=== PATIENT | female | born 1970 | race African-American/Black ===

== ENCOUNTER 2016-10-22 17:29 | Emergency (ER) | payer OTHER ==
[~2016-10-22] VITALS: Ht 160 cm; Wt 111.1 kg
[~2016-10-22 17:29] MED LIST: CLIN300C86 PO; FLUC150T PO; METR500T4 PO; NYST15CR TP
[2016-10-22 17:55] VITALS: BP 165/92
[2016-10-22] MEDS ORDERED: HYDR-971 PO (18:44)
[2016-10-22] MEDS ORDERED: ONDA4TAB10 SL (18:44)
--- NOTE | 2016-10-22 18:47 | ED.ADGEN ---
Past Medical History Past Medical History: Arthritis, Asthma, Diabetes-Type II, GERD, High Cholesterol, Hypertension Additional Past Medical Histor: SEASONAL ALLERGIES Past Surgical History: Cholecystectomy, , Knee Replacement, Tonsillectomy Alcohol Use: None Drug Use: None Adult General Chief Complaint Chief Complaint: SORE THROAT HPI HPI Patient is a 46 year old female presents emergency Department with a four-day history of sore throat, nausea, intermittent fevers, and generalized myalgias. She has been taking [id number] cold medications but reports that her throat just hurt too much today. Review of Systems Review of Systems Constitutional: Denies fever or chills. [] Eyes: Denies change in visual acuity. [] HENT: Denies nasal congestion or sore throat. [] Respiratory: Denies cough or shortness of breath. [] Cardiovascular: Denies chest pain or edema. [] GI: Denies abdominal pain, nausea, vomiting, bloody stools or diarrhea. [] : Denies dysuria. [] Musculoskeletal: Denies back pain or joint pain. [] Integument: Denies rash. [] Neurologic: Denies headache, focal weakness or sensory changes. [] Endocrine: Denies polyuria or polydipsia. [] Lymphatic: Denies swollen glands. [] Psychiatric: Denies depression or anxiety. [] Current Medications Current Medications Current Medications Medications (Trade) Dose Ordered Sig/Kimberlyn Start Time Stop Time Status Last Admin Dose Admin Penicillin G Benzathine (Bicillin L-A) 1,200,000 unit 1X ONCE 10/22/16 18:45 10/22/16 18:46 UNV Allergies Allergies Allergies Coded Allergies Type Severity Reaction Last Updated Verified No Known Drug Allergies 07/31/16 No Physical Exam Physical Exam Constitutional: Well developed, well nourished, no acute distress, non-toxic appearance. [] HENT: Normocephalic, atraumatic, bilateral external ears normal, oropharynx moist, bilateral tonsils are erythematous and edematous with exudate, nose normal. [] Eyes: PERRLA, EOMI, conjunctiva normal, no discharge. [] Neck: Normal range of motion, no tenderness, supple, no stridor. [] Cardiovascular:Heart rate regular rhythm, no murmur [] Lungs & Thorax: Bilateral breath sounds clear to auscultation [] Abdomen: Bowel sounds normal, soft, no tenderness, no masses, no pulsatile masses. [] Skin: Warm, dry, no erythema, no rash. [] Back: No tenderness, no CVA tenderness. [] Extremities: No tenderness, no cyanosis, no clubbing, ROM intact, no edema. [] Neurologic: Alert and oriented X 3, normal motor function, normal sensory function, no focal deficits noted. [] Psychologic: Affect normal, judgement normal, mood normal. [] Current Patient Data Vital Signs Vital Signs Date Time Temp Pulse Resp B/P Pulse Ox O2 Delivery O2 Flow Rate FiO2 10/22/16 17:55 100.9 134 16 165/92 99 Room Air 100.9 EKG EKG [] Radiology/Procedures Radiology/Procedures [] Course & Med Decision Making Course & Med Decision Making Pertinent Labs and Imaging studies reviewed. (See chart for details) The patient was treated with Bicillin and given a prescription for [place] and Zofran. She is given supportive care and follow-up instructions. Strep pharyngitis [] Dragon Disclaimer Dragon Disclaimer This electronic medical record was generated, in whole or in part, using a voice recognition dictation system. AMAIRANI SWEENEY MD Oct 22, 2016 18:47
[2016-10-22 18:55] LABS: OBC FLU VALID
[2016-10-22] MEDS ORDERED: PENICILLIN G BENZATHINE LA 1,200,000 UNIT/2 ML DISP.SYRIN. IM ONE (19:00)
[2016-10-23 08:20] LABS: NEGATIVE OBC STREP NEG; POSITIVE OBC STREP POS
== END 2016-10-22 19:26 | disposition home or self-care (01) ==
LOC: ER 17:29
DX: J02.0 Streptococcal pharyngitis (principal); J45.909 Unspecified asthma, uncomplicated; E11.9 Type 2 diabetes mellitus without complications; E78.00 Pure hypercholesterolemia, unspecified; I10 Essential (primary) hypertension; Z90.89 Acquired absence of other organs
CPT/HCPCS: 87804; 87880; 96372; 99284; J0561

== ENCOUNTER 2017-02-23 14:00 | Emergency (ER) | payer OTHER ==
[~2017-02-23] VITALS: Ht 160 cm; Wt 111.1 kg
[~2017-02-23 14:00] MED LIST changes: +CLIN300C8 PO; -CLIN300C86 PO; +HYDR-971 PO; -METR500T4 PO; +METR500T8 PO; +ONDA4TAB10 SL
[2017-02-23 14:15] VITALS: BP 152/73
--- NOTE | 2017-02-23 15:00 | PHYS DOC ---
Past Medical History Past Medical History: Arthritis, Asthma, Diabetes-Type II, GERD, High Cholesterol, Hypertension Additional Past Medical Histor: SEASONAL ALLERGIES Past Surgical History: Cholecystectomy, , Knee Replacement, Tonsillectomy Alcohol Use: None Drug Use: None Adult General Chief Complaint Chief Complaint: SKIN RASH/ABSCESS HPI HPI Patient is a 46 year old female who presents with a pruritic rash that began 2 months ago. Patient states she has tried hydrocortisone cream with no relief, she states she has been seen by the PCP and was given triamcinolone cream with no relief. Patient denies any known triggers for this rash. Review of Systems Review of Systems Constitutional: Denies fever or chills [] Eyes: Denies change in visual acuity, redness, or eye pain [] Musculoskeletal: Denies back pain or joint pain [] Integument: rash Neurologic: Denies headache, focal weakness or sensory changes [] Endocrine: Denies polyuria or polydipsia [] Allergies Allergies Allergies Coded Allergies Type Severity Reaction Last Updated Verified No Known Drug Allergies 07/31/16 No Physical Exam Physical Exam Constitutional: Well developed, well nourished, no acute distress, non-toxic appearance. [] HENT: Normocephalic, atraumatic, bilateral external ears normal, oropharynx moist, no oral exudates, nose normal. [] Skin: Small amount of non-erythematous papular rash on bilateral upper extremities. Back: No tenderness, no CVA tenderness. [] Extremities: No tenderness, no cyanosis, no clubbing, ROM intact, no edema. [] Neurologic: Alert and oriented X 3, normal motor function, normal sensory function, no focal deficits noted. [] Psychologic: Affect normal, judgement normal, mood normal. [] Current Patient Data Vital Signs Vital Signs Date Time Temp Pulse Resp B/P (MAP) Pulse Ox O2 Delivery O2 Flow Rate FiO2 02/23/17 14:15 97.8 102 16 100 Room Air 97.8 EKG EKG [] Radiology/Procedures Radiology/Procedures [] Course & Med Decision Making Course & Med Decision Making Pertinent Labs and Imaging studies reviewed. (See chart for details) Patient has contact dermatitis rash from unknown cause. Discharged with Atarax. She already has triamcinolone cream. Follow-up with primary care doctor or burner shaft provided in 2 weeks. Dragon Disclaimer Dragon Disclaimer This electronic medical record was generated, in whole or in part, using a voice recognition dictation system. Departure Departure Impression: Primary Impression: Contact dermatitis Disposition: 01 HOME, SELF-CARE Condition: STABLE Referrals: OMAR LOGAN MD (PCP) VITALIY TRAYLOR MD follow up in 2 weeks Patient Instructions: Contact Dermatitis, [id number] Additional Instructions: You seen for an itchy rash. We recommend you follow-up with the provided burner shaft. Use the medications provided as ordered. Scripts Hydroxyzine Hcl (HYDROXYZINE HCL) 50 Mg Tablet 50 MG PO Q6HRS, #60 TAB Prov: BARB FRANK APRN 02/23/17 Problem Qualifiers Primary Impression: Contact dermatitis Contact dermatitis type: unspecified Contact dermatitis trigger: unspecified trigger Qualified Codes: L25.9 - Unspecified contact dermatitis, unspecified cause BARB FRANK APRN Feb 23, 2017 15:00
[2017-02-23] MEDS ORDERED: HYDR50TA PO (15:03)
== END 2017-02-23 15:08 | disposition home or self-care (01) ==
LOC: ER 14:00
DX: L25.9 Unspecified contact dermatitis, unspecified cause (principal); M19.90 Unspecified osteoarthritis, unspecified site; J45.909 Unspecified asthma, uncomplicated; E11.9 Type 2 diabetes mellitus without complications; K21.9 Gastro-esophageal reflux disease without esophagitis; E78.00 Pure hypercholesterolemia, unspecified; I10 Essential (primary) hypertension; Z90.49 Acquired absence of other specified parts of digestive tract; Z96.659 Presence of unspecified artificial knee joint
CPT/HCPCS: 99283

== ENCOUNTER → 2017-07-13 | Outpatient (CLI) | payer OTHER ==
[~2017-07-13] MED LIST changes: +BENZ100C PO; +DICY20TA3 PO; +HYDR50TA PO; +PRED50TA PO; +PROAIR RESPICL90 MCG IH
--- NOTE | 2017-07-13 11:01 | RAD ---
DATE: 07/13/2017 EXAM: DIGITAL SCREEN BILAT W/CAD HISTORY: Routine screening. History of benign right breast biopsy. COMPARISON: Previous mammogram from 2015 and 2014 This study was interpreted with the benefit of Computerized Aided Detection (CAD). FINDINGS: Breast Density: FATTY The Breast Parenchyma is primarily fatty replaced. Breast parenchyma level density A.. The skin and nipples are within normal limits. Stable upper outer anterior right breast biopsy clip. No suspicious calcifications, spiculated masses or areas of architectural distortion. IMPRESSION: No mammographic evidence of malignancy. Stable mammogram. BI-RADS CATEGORY: 2 BENIGN FINDING(S) RECOMMENDED FOLLOW-UP: 12M 12 MONTH FOLLOW-UP PQRS compliance statement: Patient information was entered into a reminder system with a target due date 07/13/2018 for the next mammogram. Mammography is a sensitive method for finding small breast cancers, but it does not detect them all and is not a substitute for careful clinical examination. A negative mammogram does not negate a clinically suspicious finding and should not result in delay in biopsying a clinically suspicious abnormality. "Our facility is accredited by the [employer] Mammography Program."
== END | disposition home or self-care (01) ==
LOC: MAMMO 09:24
PROVIDERS: ATTEND Family Medicine
DX: Z12.31 Encounter for screening mammogram for malignant neoplasm of breast (principal)
CPT/HCPCS: G0202; 77067

== ENCOUNTER 2017-07-17 23:44 | Emergency (ER) | payer OTHER ==
[~2017-07-17 23:44] MED LIST changes: -BENZ100C PO; -DICY20TA3 PO; -PRED50TA PO; -PROAIR RESPICL90 MCG IH
[2017-07-17 23:57] VITALS: BP 142/82
--- NOTE | 2017-07-18 00:14 | PHYS DOC ---
Past Medical History Past Medical History: Asthma, Hypertension Additional Past Medical Histor: SEASONAL ALLERGIES Past Surgical History: Cholecystectomy, , Knee Replacement, Tonsillectomy Alcohol Use: None Drug Use: None Adult General Chief Complaint Chief Complaint: SORE THROAT HPI HPI Patient is a 47 year old female with history of hypertension who presents today with a sore throat nasal congestion and a cough that began 3 days ago. Patient denies any fever. Patient's also complaining of diarrhea for 3 days. Denies any nausea vomiting but states her "stomach feels hot". Review of Systems Review of Systems Constitutional: Denies fever or chills [] Eyes: Denies change in visual acuity, redness, or eye pain [] HENT: Nasal congestion and sore throat Respiratory: Reports cough denies shortness of breath [] Cardiovascular: No additional information not addressed in HPI [] GI: Reports stomach feels hot, denies nausea, reports diarrhea, denies vomiting. : Denies dysuria or hematuria [] Musculoskeletal: Denies back pain or joint pain [] Integument: Denies rash or skin lesions [] Neurologic: Denies headache, focal weakness or sensory changes [] All other systems were reviewed and found to be within normal limits, except as documented in this note. Allergies Allergies Allergies Coded Allergies Type Severity Reaction Last Updated Verified No Known Drug Allergies 07/31/16 No Physical Exam Physical Exam Constitutional: Well developed, well nourished, no acute distress, non-toxic appearance. [] HENT: Normocephalic, atraumatic, bilateral external ears normal, oropharynx moist, no oral exudates, nose normal. [] Eyes: PERRLA, EOMI, conjunctiva normal, no discharge. [] Neck: Normal range of motion, no tenderness, supple, no stridor. [] Cardiovascular:Heart rate regular rhythm, no murmur [] Lungs & Thorax: Bilateral breath sounds clear to auscultation [] Abdomen: Bowel sounds normal, soft, no tenderness, no masses, no pulsatile masses. [] Skin: Warm, dry, no erythema, no rash. [] Back: No tenderness, no CVA tenderness. [] Extremities: No tenderness, no cyanosis, no clubbing, ROM intact, no edema. [] Neurologic: Alert and oriented X 3, normal motor function, normal sensory function, no focal deficits noted. [] Psychologic: Affect normal, judgement normal, mood normal. [] Current Patient Data Vital Signs Vital Signs Date Time Temp Pulse Resp B/P (MAP) Pulse Ox O2 Delivery O2 Flow Rate FiO2 07/17/17 23:57 98.0 103 18 98 Room Air 98.0 EKG EKG [] Radiology/Procedures Radiology/Procedures [] Course & Med Decision Making Course & Med Decision Making Pertinent Labs and Imaging studies reviewed. (See chart for details) Patient is in the ED with multiple complaints including cough nasal congestion and sore throat. She is also complaining of diarrhea. Informed patient her diarrhea is viral and will run its own course. Her cough is probably part of an upper respiratory infection viral illness. She has history of asthma and is currently using her inhaler. Encouraged her to continue using it. Discharged with Tessalon Perles and prednisone for 5 days. Encouraged to use saltwater gargles and Tylenol Motrin for pain or fever. Strep test is negative in the ED. Dragon Disclaimer Dragon Disclaimer This electronic medical record was generated, in whole or in part, using a voice recognition dictation system. Departure Departure Impression: Primary Impression: Viral pharyngitis Additional Impressions: Upper respiratory infection Cough Diarrhea Disposition: HOME, SELF-CARE Condition: STABLE Referrals: OMAR LOGAN MD (PCP) Follow-up with your doctor in one week Patient Instructions: Cough, Adult, Ladf-[id number], Diarrhea, Upper Respiratory Infection, Adult, [id number], Viral Pharyngitis Additional Instructions: You were seen with multiple symptoms consistent of viral illness including diarrhea cough and nasal congestion and sore throat. Most of these symptoms will run in their own course. Your strep test in the emergency room was negative. We encourage you to push fluids, maintain good hand hygiene, continue using albuterol inhaler at home. Take the other prescribed medications as ordered. Follow-up with the primary care doctor in 1-2 weeks. Scripts Dicyclomine Hcl (DICYCLOMINE HCL) 20 Mg Tablet 1 TAB PO TID, #30 TAB 1 Refill for abdominal pain Prov: MUTUNGA,BARB MAINTENANCE SPECIALIST 07/18/17 Prednisone (PREDNISONE) 50 Mg Tablet 1 TAB PO DAILY, #5 TAB Prov: MUTUNGA,BARB MAINTENANCE SPECIALIST 07/18/17 Benzonatate (TESSALON PERLE) 100 Mg Capsule 1 CAP PO TID, #30 CAP Prov: BARB FRANK APRN 07/18/17 Albuterol Sulfate (Proair Respiclick) 90 Mcg Aer.pow.ba 1 PUFF IH PRN Q6HRS Y for SHORTNESS OF BREATH, #1 INHALER Prov: BARB FRANK APRN 07/18/17 Problem Qualifiers Additional Impressions: Upper respiratory infection URI type: unspecified URI Qualified Codes: J06.9 - Acute upper respiratory infection, unspecified Diarrhea Diarrhea type: unspecified type Qualified Codes: R19.7 - Diarrhea, unspecified BARB FRANK APRN Jul 18, 2017 00:14
[2017-07-18] MEDS ORDERED: BENZ100C PO (00:28)
[2017-07-18] MEDS ORDERED: PROAIR RESPICL90 MCG IH (00:28)
[2017-07-18] MEDS ORDERED: PRED50TA PO (00:28)
[2017-07-18] MEDS ORDERED: DICY20TA3 PO (00:28)
[2017-07-18 06:41] LABS: NEGATIVE OBC STREP NEG; POSITIVE OBC STREP POS
== END 2017-07-18 00:37 | disposition home or self-care (01) ==
LOC: ER 23:44
DX: J02.8 Acute pharyngitis due to other specified organisms (principal); B97.89 Other viral agents as the cause of diseases classified elsewhere; R19.7 Diarrhea, unspecified; I10 Essential (primary) hypertension; J45.909 Unspecified asthma, uncomplicated
CPT/HCPCS: 87070; 87880; 99284

== ENCOUNTER → 2017-09-28 | Outpatient (CLI) | payer BC, OTHER | END | disposition home or self-care (01) | LOC: KCIC MRI 13:03 | DX: S43.432A Superior glenoid labrum lesion of left shoulder, initial encounter (principal); M19.012 Primary osteoarthritis, left shoulder; X58.XXXA Exposure to other specified factors, initial encounter; Y93.89 Activity, other specified; Y92.89 Other specified places as the place of occurrence of the external cause; Y99.8 Other external cause status | CPT/HCPCS: 73221 ==

== ENCOUNTER → 2017-10-29 | Outpatient (CLI) | payer BC ==
[2017-10-29 10:33] LABS: GFR 71.9
[2017-10-29] MEDS: IOHEXOL 240 MG/ML 50ML VIAL. PO (12:09)
[2017-10-29] MEDS: IOHEXOL 300 MG/ML 100ML VIAL. IV (12:09)
== END | disposition home or self-care (01) ==
LOC: CT 10:10
DX: K76.0 Fatty (change of) liver, not elsewhere classified (principal); N28.89 Other specified disorders of kidney and ureter; K42.9 Umbilical hernia without obstruction or gangrene; I10 Essential (primary) hypertension; E11.9 Type 2 diabetes mellitus without complications; J45.909 Unspecified asthma, uncomplicated; R16.0 Hepatomegaly, not elsewhere classified
CPT/HCPCS: 36415; 74177; 82565; Q9966; Q9967

== ENCOUNTER → 2017-12-11 | Day surgery (SDC) | payer BC ==
[~2017-12-11] MED LIST changes: -CLIN300C8 PO; -FLUC150T PO; -HYDR-971 PO; -HYDR50TA PO; +LIDOCAINE 1% PF 2 ML VIAL. ID; +LIDOCAINE 2% PF Vial for OR 5 ML VIAL.; -METR500T8 PO; +MIDAZOLAM HCL/PF 2 MG/2 ML VIAL. IV; -NYST15CR TP; -ONDA4TAB10 SL; +PROPOFOL 40 ML IV; +fentaNYL PF VIAL 100 MCG/2 ML VIAL IV
[2017-12-11] MEDS: IV RINGERS,LACTATED 1000ML 1,000 ML IV (12:03)
[2017-12-11 16:18] LABS: NEG OBC UR NEG; POS OBC UR POS; U PREG PATIENT NEGATIVE (NEG)
== END | disposition home or self-care (01) ==
LOC: ENDOS 13:05
DX: K25.9 Gastric ulcer, unspecified as acute or chronic, without hemorrhage or perforation (principal); K21.9 Gastro-esophageal reflux disease without esophagitis; I10 Essential (primary) hypertension; E66.9 Obesity, unspecified; J45.909 Unspecified asthma, uncomplicated; E78.00 Pure hypercholesterolemia, unspecified; Z86.32 Personal history of gestational diabetes; Z90.49 Acquired absence of other specified parts of digestive tract; Z98.890 Other specified postprocedural states; Z82.49 Family history of ischemic heart disease and other diseases of the circulatory system; Z83.3 Family history of diabetes mellitus; Z91.013 Allergy to seafood; Z88.8 Allergy status to other drugs, medicaments and biological substances; Z79.899 Other long term (current) drug therapy
CPT/HCPCS: 43239; 81025; 88305; 88342; J2704

== ENCOUNTER 2018-04-03 18:55 | Inpatient (IN) | payer BC ==
[~2018-04-03] VITALS: Ht 160 cm; Wt 124.3 kg
[~2018-04-03 18:55] MED LIST changes: +BENZ100C PO; +CELE200C PO; +CLIN300C8 PO; +DAPA1TAB3 PO; +DICY20TA3 PO; +FLUC150T PO; +HYDR-971 PO; +HYDR50TA PO; -LIDOCAINE 1% PF 2 ML VIAL. ID; -LIDOCAINE 2% PF Vial for OR 5 ML VIAL.; +LISI1TAB3 PO; +LORA10TA68 PO; +LOVA20TA2 PO; +METR500T8 PO; -MIDAZOLAM HCL/PF 2 MG/2 ML VIAL. IV; +NYST15CR TP; +ONDA4TAB10 SL; +PRED50TA PO; +PROAIR RESPICL90 MCG IH; -PROPOFOL 40 ML IV; +RANI150T21 PO; +TRAM50TA PO; -fentaNYL PF VIAL 100 MCG/2 ML VIAL IV
[2018-04-03 19:28] LABS: U PREG PATIENT NEGATIVE (NEG)
[2018-04-03] MEDS ORDERED: amLODIPine BESYLATE 5 MG TABLET PO ONE (19:45)
[2018-04-03] MEDS ORDERED: ACETAMINOPHEN 500 MG TABLET PO ONE (19:45)
[2018-04-03] MEDS ORDERED: IV NORMAL SALINE 1000ML BAG 1,000 ML IV ONE (19:45)
[2018-04-03 19:53] LABS: BASO % 1 % (0-3); EOS # 0.1 x10^3/uL (0.0-0.7); EOS % 1 % (0-3); HEMATOCRIT 33.2 % (36.0-47.0); HEMOGLOBIN 11.1 g/dL (12.0-15.5); LYMPH # 0.9 x10^3/uL (1.0-4.8); LYMPH % 15 % (24-48); MEAN CORPUSCULAR HEMOGLOBIN 26 pg (25-35); MEAN CORPUSCULAR HGB CONC 34 g/dL (31-37); MEAN CORPUSCULAR VOLUME 79 fL (79-100); MONO # 0.7 x10^3/uL (0.0-1.1); MONO % 11 % (0-9); NEUT # 4.6 x10^3uL (1.8-7.7); NEUT % 73 % (31-73); PLATELET COUNT 191 x10^3/uL (140-400); RED CELL DISTRIBUTION WIDTH 15.5 % (11.5-14.5); WHITE BLOOD COUNT 6.3 x10^3/uL (4.0-11.0)
--- NOTE | 2018-04-03 20:01 | RAD ---
PROCEDURE: PORTABLE CHEST 1V CLINICAL INDICATION: ER PATIENT. FEVER X2 DAYS. HX HTN. ASTHMA, DIABETES.. COMPARISON: None FINDINGS: No pneumothorax identified. Cardiac and mediastinal contours unremarkable. No pulmonary consolidation or acute airspace disease. No acute osseous abnormalities identified. IMPRESSION: No pulmonary consolidation or acute airspace disease. Electronically signed by: Yeyo Harper DO (04/03/2018 7:58 PM) [facility]
[2018-04-03 20:14] LABS: ALBUMIN 3.2 g/dL (3.4-5.0); ALBUMIN/GLOBULIN RATIO 0.9 (1.0-1.7); CALCIUM 8.9 mg/dL (8.5-10.1); CREATININE 1.2 mg/dL (0.6-1.0); GFR 58.3; TOTAL BILIRUBIN 0.6 mg/dL (0.2-1.0); TOTAL PROTEIN 6.8 g/dL (6.4-8.2)
[2018-04-03 20:15] LABS: POTASSIUM 2.7 mmol/L (3.5-5.1)
[2018-04-03] MEDS ORDERED: POTASSIUM CHLORIDE 20 MEQ/15 ML ORAL LIQUID. PO ONE (20:15)
[2018-04-03] MEDS ORDERED: ONDANSETRON PF 4 MG/2 ML VIAL. IV ONE (20:15)
--- NOTE | 2018-04-03 20:19 | PHYS DOC ---
Past Medical History Past Medical History: Asthma, Diabetes-Type II, GERD, Hypertension Additional Past Medical Histor: SEASONAL ALLERGIES Past Surgical History: Cholecystectomy, , Knee Replacement, Tonsillectomy Alcohol Use: None Drug Use: None Adult General Chief Complaint Chief Complaint: ABDOMINAL PAIN HPI HPI Patient is a 47 year old female who is presenting with chief been multiple complaints. She says she has had body aches feeling chills sore throat sinus congestion and mild cough also had a lot of diarrhea yesterday she had some abdominal cramping with that diarrhea the abdominal discomfort has currently gone away she denies any urinary symptoms no chest pain no shortness of breath she just feels weak and has having body aches and joint aches. There are no sick contacts no recent travel out of this area. She does have a history of diabetes as well. Review of Systems Review of Systems Constitutional: Eyes: Denies change in visual acuity, redness, or eye pain [] HENT: Respiratory: Denies cough or shortness of breath [] Cardiovascular: No additional information not addressed in HPI [] Musculoskeletal: Integument: Denies rash or skin lesions [] Neurologic: Denies headache, focal weakness or sensory changes [] Endocrine: Denies polyuria or polydipsia [] All other systems were reviewed and found to be within normal limits, except as documented in this note. Current Medications Current Medications Current Medications Medications (Trade) Dose Ordered Sig/Kimberlyn Start Time Stop Time Status Last Admin Dose Admin Acetaminophen (Tylenol) 1,000 mg 1X ONCE 04/03/18 19:45 04/03/18 19:46 DC 04/03/18 19:51 1,000 MG Amlodipine Besylate (Norvasc) 10 mg 1X ONCE 04/03/18 19:45 04/03/18 19:46 DC 04/03/18 19:51 10 MG Clonidine HCl (Catapres) 0.1 mg 1X ONCE 04/03/18 21:00 04/03/18 21:02 DC 04/03/18 21:21 0.1 MG Magnesium Sulfate/ Dextrose 100 ml @ 100 mls/hr 1X ONCE 04/03/18 21:00 04/03/18 21:59 DC 04/03/18 21:22 100 MLS/HR Ondansetron HCl (Zofran) 4 mg 1X ONCE 04/03/18 20:15 04/03/18 20:19 DC 04/03/18 20:30 4 MG Potassium Chloride/Sodium Chloride 1,000 ml @ 125 mls/hr 1X ONCE 04/03/18 21:00 04/04/18 04:59 04/03/18 21:22 125 MLS/HR Potassium Chloride (KCl Oral Soln) 60 meq 1X ONCE 04/03/18 20:15 04/03/18 20:19 DC 04/03/18 20:31 60 MEQ Sodium Chloride 1,000 ml @ 1,000 mls/hr 1X ONCE 04/03/18 19:45 04/03/18 20:44 DC 04/03/18 19:50 1,000 MLS/HR Allergies Allergies Allergies Coded Allergies Type Severity Reaction Last Updated Verified fish derived Allergy Severe ANAPHYLAXIS 12/11/17 Yes Physical Exam Physical Exam Constitutional: Well developed, over nourished, no acute distress, non-toxic appearance. [] HENT: Normocephalic, atraumatic, bilateral external ears normal, oropharynx dry , no oral exudates, nose normal. [] Eyes: PERRLA, EOMI, conjunctiva normal, no discharge. [] Neck: Normal range of motion, no tenderness, supple, no stridor. [] Cardiovascular: Mild tachycardia Lungs & Thorax: Bilateral breath sounds clear to auscultation [] Abdomen: Bowel sounds normal, soft, no tenderness, no masses, no pulsatile masses. [] Skin: Warm, dry, no erythema, no rash. [] Back: No tenderness, no CVA tenderness. [] Extremities: No tenderness, no cyanosis, no clubbing, ROM intact, no edema. [] Neurologic: Alert and oriented X 3, normal motor function, normal sensory function, no focal deficits noted. [] Psychologic: Affect normal, judgement normal, mood normal. [] Current Patient Data Vital Signs Vital Signs Date Time Temp Pulse Resp B/P (MAP) Pulse Ox O2 Delivery O2 Flow Rate FiO2 04/03/18 21:21 103 186/91 04/03/18 19:21 98.8 18 95 Room Air 98.8 Lab Values Laboratory Tests Test 04/03/18 19:15 04/03/18 19:49 Urine Collection Type Unknown Urine Color Yellow Urine Clarity Clear Urine pH 5.5 Urine Specific [place] >=1.030 Urine Protein Negative mg/dL (NEG-TRACE) Urine Glucose (UA) >=1000 mg/dL (NEG) Urine Ketones (Stick) Negative mg/dL (NEG) Urine Blood Negative (NEG) Urine Nitrite Negative (NEG) Urine Bilirubin Negative (NEG) Urine Urobilinogen Dipstick 1.0 mg/dL (0.2 mg/dL) Urine Leukocyte Esterase Negative (NEG) Urine RBC Rare /HPF (0-2) Urine WBC Occ /HPF (0-4) Urine Squamous Epithelial Cells Mod /LPF Urine Bacteria Few /HPF (0-FEW) Urine Test Negative (NEG) White Blood Count 6.3 x10^3/uL (4.0-11.0) Red Blood Count 4.20 x10^6/uL (3.50-5.40) Hemoglobin 11.1 g/dL (12.0-15.5) L Hematocrit 33.2 % (36.0-47.0) L Mean Corpuscular Volume 79 fL (79-100) Mean Corpuscular Hemoglobin 26 pg (25-35) Mean Corpuscular Hemoglobin Concent 34 g/dL (31-37) Red Cell Distribution Width 15.5 % (11.5-14.5) H Platelet Count 191 x10^3/uL (140-400) Neutrophils (%) (Auto) 73 % (31-73) Lymphocytes (%) (Auto) 15 % (24-48) L Monocytes (%) (Auto) 11 % (0-9) H Eosinophils (%) (Auto) 1 % (0-3) Basophils (%) (Auto) 1 % (0-3) Neutrophils # (Auto) 4.6 x10^3uL (1.8-7.7) Lymphocytes # (Auto) 0.9 x10^3/uL (1.0-4.8) L Monocytes # (Auto) 0.7 x10^3/uL (0.0-1.1) Eosinophils # (Auto) 0.1 x10^3/uL (0.0-0.7) Basophils # (Auto) 0.0 x10^3/uL (0.0-0.2) Sodium Level 141 mmol/L (136-145) Potassium Level 2.7 mmol/L (3.5-5.1) *L Chloride Level 104 mmol/L (98-107) Carbon Dioxide Level 31 mmol/L (21-32) Anion Gap 6 (6-14) Blood Urea Nitrogen 9 mg/dL (7-20) Creatinine 1.2 mg/dL (0.6-1.0) H Estimated GFR (Cockcroft-Gault) 58.3 BUN/Creatinine Ratio 8 (6-20) Glucose Level 293 mg/dL (70-99) H Calcium Level 8.9 mg/dL (8.5-10.1) Magnesium Level 1.8 mg/dL (1.8-2.4) Total Bilirubin 0.6 mg/dL (0.2-1.0) Aspartate Amino Transferase (AST) 17 U/L (15-37) Alanine Aminotransferase (ALT) 15 U/L (14-59) Alkaline Phosphatase 79 U/L (46-116) Total Protein 6.8 g/dL (6.4-8.2) Albumin 3.2 g/dL (3.4-5.0) L Albumin/Globulin Ratio 0.9 (1.0-1.7) L Lipase 185 U/L (73-393) Laboratory Tests 04/03/18 19:49 Laboratory Tests 04/03/18 19:49 EKG EKG [] Interpretation Time: EKG shows sinus tach rate 107 QTc 508 magnesium is currently pending ST segment depression laterally probably related to hypokalemia. Radiology/Procedures Radiology/Procedures [] Impressions: PROCEDURE: PORTABLE CHEST 1V CLINICAL INDICATION: ER PATIENT. FEVER X2 DAYS. HX HTN. ASTHMA, DIABETES.. COMPARISON: None FINDINGS: No pneumothorax identified. Cardiac and mediastinal contours unremarkable. No pulmonary consolidation or acute airspace disease. No acute osseous abnormalities identified. IMPRESSION: No pulmonary consolidation or acute airspace disease. Electronically signed by: Yeyo Harper DO (04/03/2018 7:58 PM) [facility] DICTATED and SIGNED BY: YEYO HARPER DO DATE: 04/03/181956 Course & Med Decision Making Course & Med Decision Making Pertinent Labs and Imaging studies reviewed. (See chart for details) []47-year-old female with the above past medical history to include obesity asthma diabetes hypertension did not take medications today who is presenting with diarrhea sore throat and body aches generalized malaise and chills all seemingly consistent with a viral syndrome. Potassium was 2.7, magnesium and ordered an EKG we did give 60 mEq of by mouth potassium. This is likely related to GI losses from diarrhea given her history given qtc of 508, and pt still symptomatic feeling weak and dizzy (also with elevated bp likely due to med noncompliance), i have opted to admit patient for iv fluid k repletion and observation, she is agreealbe, admit to med/tele d/w marshal. Dragon Disclaimer Dragon Disclaimer This electronic medical record was generated, in whole or in part, using a voice recognition dictation system. Departure Departure Impression: Primary Impression: Viral syndrome Additional Impression: Hypokalemia Disposition: ADMITTED INPATIENT Admitting Physician: Xie. Jon Condition: STABLE Referrals: OMAR LOGAN MD (PCP) Problem Qualifiers KANDICE LEZAMA MD Apr 03, 2018 20:19
[2018-04-03 20:44] LABS: BILIRUBIN,URINE NEGATIVE (NEG); CLARITY,URINE CLEAR; COLOR,URINE YELLOW; NITRITE,URINE NEGATIVE (NEG); PH,URINE 5.5; PROTEIN,URINE NEGATIVE (NEG-TRACE)
[2018-04-03 20:51] LABS: BACTERIA,URINE FEW /HPF (0-FEW); RBC,URINE RARE /HPF (0-2); SQUAMOUS EPITHELIAL CELL,UR MOD /LPF; WBC,URINE OCC /HPF (0-4)
[2018-04-03] MEDS ORDERED: cloNIDine HCL 0.1 MG TABLET PO ONE (21:00)
[2018-04-03] MEDS ORDERED: POTASSIUM CL 40MEQ IN 0.9%NACL 1,000 ML IV ONE (21:00)
[2018-04-03] MEDS ORDERED: MAGNESIUM SULFATE 1GM 100 ML IV ONE (21:00)
--- NOTE | 2018-04-03 21:00 | EKG ---
[facility] [address] [place] [address] Test Date: 2018-04-03 Test Time: 20:27:49 Pat Name: MANAV MCDANIEL Department: Room: Gender: F Drier Operator: : 1970 Requested By: KANDICE LEZAMA Order Number: [id number] Reading MD: Aman Christianson MD Measurements Intervals [place] Rate: 107 P: 49 SD: 122 QRS: 42 QRSD: 84 T: 3 QT: 376 QTc: 508 Interpretive Statements SINUS TACHYCARDIA Electronically Signed On 04-04-2018 7:35:04 CDT by Aman Christianson MD
[2018-04-03 23:30] VITALS: BP 144/82
[2018-04-04] MEDS ORDERED: FERR325T14 PO (00:26)
[2018-04-04 02:45] VITALS: BP 143/80
[2018-04-04 05:03] LABS: CALCIUM 7.8 mg/dL (8.5-10.1); CREATININE 0.9 mg/dL (0.6-1.0); GFR 81.2; POTASSIUM 3.4 mmol/L (3.5-5.1)
[2018-04-04 07:00] VITALS: BP 116/68
[2018-04-04 11:00] VITALS: BP 139/89
--- NOTE | 2018-04-04 11:05 | PDOC1 ---
History and Physical Date of Admission Date of Admission DATE: 04/04/18 TIME: 11:05 Identification/Chief Complaint Chief Complaint cc body aches feeling chills sore throat sinus congestion and mild cough also had a lot of diarrhea red some abdominal cramping with that diarrhea the abdominal discomfort has currently gone away potassium was low on admit in ER Past Medical History Past Medical History Past Medical History Past Medical History Past Medical History: Asthma, Diabetes-Type II, GERD, Hypertension Additional Past Medical Histor: SEASONAL ALLERGIES Past Surgical History: Cholecystectomy, , Knee Replacement, Tonsillectomy Alcohol Use: None Drug Use: None FAMILY HX DIABETES, HTN Rheumatologic: No pertinent hx Infectious disease: No pertinent hx Endocrine: Diabetes Family History Family History: Diabetes, Hypertension Social History Smoke: No ALCOHOL: none Drugs: None Current Problem List Problem List Problems Medical Problems: (1) Hypokalemia Status: Acute (2) Viral syndrome Status: Acute Current Medications Current Medications Current Medications Sodium Chloride 1,000 ml @ 1,000 mls/hr 1X ONCE IV Last administered on at 19:50; Start 04/03/18 at 19:45; Stop 04/03/18 at 20:44; Status DC Acetaminophen (Tylenol) 1,000 mg 1X ONCE PO Last administered on 04/03/18at 19: 51; Start 04/03/18 at 19:45; Stop 04/03/18 at 19:46; Status DC Amlodipine Besylate (Norvasc) 10 mg 1X ONCE PO Last administered on 04/03/18at 19:51; Start 04/03/18 at 19:45; Stop 04/03/18 at 19:46; Status DC Potassium Chloride (KCl Oral Soln) 60 meq 1X ONCE PO Last administered on 04/03at 20:31; Start 04/03/18 at 20:15; Stop 04/03/18 at 20:19; Status DC Ondansetron HCl (Zofran) 4 mg 1X ONCE IV Last administered on 04/03/18at 20:30 ; Start 04/03/18 at 20:15; Stop 04/03/18 at 20:19; Status DC Magnesium Sulfate/ Dextrose 100 ml @ 100 mls/hr 1X ONCE IV Last administered on 04/03/18at 21:22; Start 04/03/18 at 21:00; Stop 04/03/18 at 21:59; Status DC Potassium Chloride/Sodium Chloride 1,000 ml @ 125 mls/hr 1X ONCE IV Last administered on 04/03/18at 21:22; Start 04/03/18 at 21:00; Stop 04/04/18 at 04:59 ; Status DC Clonidine HCl (Catapres) 0.1 mg 1X ONCE PO Last administered on 04/03/18at 21: 21; Start 04/03/18 at 21:00; Stop 04/03/18 at 21:02; Status DC Active Scripts Active Proair Respiclick (Albuterol Sulfate) 90 Mcg Aer.pow.ba 1 Puff IH PRN Q6HRS PRN Reported Ferrous Sulfate 325 Mg Tablet 1 Tab PO DAILY Claritin (Loratadine) 10 Mg Tablet 10 Mg PO DAILY Lovastatin 20 Mg Tablet 20 Mg PO HS Lisinopril-Hctz 10-12.5 Mg Tab (Lisinopril/Hydrochlorothiazide) 1 Each Tablet 1 Tab PO DAILY Celebrex (Celecoxib) 200 Mg Capsule 400 Mg PO BID 30 Days Xigduo Xr 5 mg-1,000 mg Tablet (Dapagliflozin/Metformin HCl) 1 Each Tab.bp.24h 1 Each PO DAILY Zantac (Ranitidine Hcl) 150 Mg Tablet 150 Mg PO DAILY Allergies Allergies: Coded Allergies: fish derived (Verified Allergy, Severe, ANAPHYLAXIS, 12/11/17) ROS Review of System Review of Systems Review of Systems Constitutional: Eyes: Denies change in visual acuity, redness, or eye pain [] Respiratory: Denies cough or shortness of breath [] Cardiovascular: No additional information not addressed in HPI [] Musculoskeletal: WEAK WITH GAIT Integument: Denies rash or skin lesions [] Neurologic: Denies headache, focal weakness or sensory changes [] Endocrine: Denies polyuria or polydipsia [] 14 PT systems were reviewed and found to be within normal limits, except as documented . General: YES: Fatigue Skin: No Dry Skin, No Eczema, No Hair Changes, No Lumps, No Mole Changes, No Mottling, No Nail Changes, No Pruritus, No Rash, No Skin Lesion Changes, No Other, No Acne Physical Exam Physical Exam Physical Exam Physical Exam Constitutional: Well developed, over nourished, no acute distress, non-toxic appearance. OBESE [] HENT: Normocephalic, atraumatic, bilateral external ears normal, oropharynx dry , no oral exudates, nose normal. [] Eyes: PERRLA, EOMI, conjunctiva normal, no discharge. [] Neck: Normal range of motion, no tenderness, supple, no stridor. [] Cardiovascular: Mild tachycardia Lungs & Thorax: Bilateral breath sounds clear to auscultation [] Abdomen: Bowel sounds normal, soft, no tenderness, no masses, no pulsatile masses. [] Skin: Warm, dry, no erythema, no rash. [] Back: No tenderness, no CVA tenderness. [] Extremities: No tenderness, no cyanosis, no clubbing, ROM intact, no edema. [] Neurologic: Alert and oriented X 3, normal motor function, normal sensory function, no focal deficits noted. [] Psychologic: Affect normal, judgement normal, mood normal. [] General: Oriented X3, Cooperative HEENT: PERRLA Lungs: Clear to auscultation Heart: RRR Breasts: Not examined Abdomen: Normal bowel sounds, Soft Rectal Exam: not examined Neuro: Normal speech, Cranial nerves 3-12 NL Psych/Mental Status: Mental status NL, Mood NL Vitals Vitals Vital Signs Date Time Temp Pulse Resp B/P (MAP) Pulse Ox O2 Delivery O2 Flow Rate FiO2 04/04/18 08:00 Room Air 04/04/18 07:00 97.9 94 16 116/68 (84) 96 97.9 Labs Labs Laboratory Tests Test 04/03/18 19:15 04/03/18 19:41 04/03/18 19:49 04/04/18 03:20 Urine Collection Type Unknown Urine Color Yellow Urine Clarity Clear Urine pH 5.5 Urine Specific [place] >=1.030 Urine Protein Negative mg/dL (NEG-TRACE) Urine Glucose (UA) >=1000 mg/dL (NEG) Urine Ketones (Stick) Negative mg/dL (NEG) Urine Blood Negative (NEG) Urine Nitrite Negative (NEG) Urine Bilirubin Negative (NEG) Urine Urobilinogen Dipstick 1.0 mg/dL (0.2 mg/dL) Urine Leukocyte Esterase Negative (NEG) Urine RBC Rare /HPF (0-2) Urine WBC Occ /HPF (0-4) Urine Squamous Epithelial Cells Mod /LPF Urine Bacteria Few /HPF (0-FEW) Urine Test Negative (NEG) Group A Streptococcus Rapid Negative (NEGATIVE) White Blood Count 6.3 x10^3/uL (4.0-11.0) Red Blood Count 4.20 x10^6/uL (3.50-5.40) Hemoglobin 11.1 g/dL (12.0-15.5) Hematocrit 33.2 % (36.0-47.0) Mean Corpuscular Volume 79 fL (79-100) Mean Corpuscular Hemoglobin 26 pg (25-35) Mean Corpuscular Hemoglobin Concent 34 g/dL (31-37) Red Cell Distribution Width 15.5 % (11.5-14.5) Platelet Count 191 x10^3/uL (140-400) Neutrophils (%) (Auto) 73 % (31-73) Lymphocytes (%) (Auto) 15 % (24-48) Monocytes (%) (Auto) 11 % (0-9) Eosinophils (%) (Auto) 1 % (0-3) Basophils (%) (Auto) 1 % (0-3) Neutrophils # (Auto) 4.6 x10^3uL (1.8-7.7) Lymphocytes # (Auto) 0.9 x10^3/uL (1.0-4.8) Monocytes # (Auto) 0.7 x10^3/uL (0.0-1.1) Eosinophils # (Auto) 0.1 x10^3/uL (0.0-0.7) Basophils # (Auto) 0.0 x10^3/uL (0.0-0.2) Sodium Level 141 mmol/L (136-145) 141 mmol/L (136-145) Potassium Level 2.7 mmol/L (3.5-5.1) 3.4 mmol/L (3.5-5.1) Chloride Level 104 mmol/L (98-107) 106 mmol/L (98-107) Carbon Dioxide Level 31 mmol/L (21-32) 27 mmol/L (21-32) Anion Gap 6 (6-14) 8 (6-14) Blood Urea Nitrogen 9 mg/dL (7-20) 8 mg/dL (7-20) Creatinine 1.2 mg/dL (0.6-1.0) 0.9 mg/dL (0.6-1.0) Estimated GFR (Cockcroft-Gault) 58.3 81.2 BUN/Creatinine Ratio 8 (6-20) Glucose Level 293 mg/dL (70-99) 189 mg/dL (70-99) Calcium Level 8.9 mg/dL (8.5-10.1) 7.8 mg/dL (8.5-10.1) Magnesium Level 1.8 mg/dL (1.8-2.4) Total Bilirubin 0.6 mg/dL (0.2-1.0) Aspartate Amino Transf (AST/SGOT) 17 U/L (15-37) Alanine Aminotransferase (ALT/SGPT) 15 U/L (14-59) Alkaline Phosphatase 79 U/L (46-116) Total Protein 6.8 g/dL (6.4-8.2) Albumin 3.2 g/dL (3.4-5.0) Albumin/Globulin Ratio 0.9 (1.0-1.7) Lipase 185 U/L (73-393) Laboratory Tests Test 04/03/18 19:15 04/03/18 19:41 04/03/18 19:49 04/04/18 03:20 Urine Collection Type Unknown Urine Color Yellow Urine Clarity Clear Urine pH 5.5 Urine Specific [place] >=1.030 Urine Protein Negative mg/dL (NEG-TRACE) Urine Glucose (UA) >=1000 mg/dL (NEG) Urine Ketones (Stick) Negative mg/dL (NEG) Urine Blood Negative (NEG) Urine Nitrite Negative (NEG) Urine Bilirubin Negative (NEG) Urine Urobilinogen Dipstick 1.0 mg/dL (0.2 mg/dL) Urine Leukocyte Esterase Negative (NEG) Urine RBC Rare /HPF (0-2) Urine WBC Occ /HPF (0-4) Urine Squamous Epithelial Cells Mod /LPF Urine Bacteria Few /HPF (0-FEW) Urine Test Negative (NEG) Group A Streptococcus Rapid Negative (NEGATIVE) White Blood Count 6.3 x10^3/uL (4.0-11.0) Red Blood Count 4.20 x10^6/uL (3.50-5.40) Hemoglobin 11.1 g/dL (12.0-15.5) Hematocrit 33.2 % (36.0-47.0) Mean Corpuscular Volume 79 fL (79-100) Mean Corpuscular Hemoglobin 26 pg (25-35) Mean Corpuscular Hemoglobin Concent 34 g/dL (31-37) Red Cell Distribution Width 15.5 % (11.5-14.5) Platelet Count 191 x10^3/uL (140-400) Neutrophils (%) (Auto) 73 % (31-73) Lymphocytes (%) (Auto) 15 % (24-48) Monocytes (%) (Auto) 11 % (0-9) Eosinophils (%) (Auto) 1 % (0-3) Basophils (%) (Auto) 1 % (0-3) Neutrophils # (Auto) 4.6 x10^3uL (1.8-7.7) Lymphocytes # (Auto) 0.9 x10^3/uL (1.0-4.8) Monocytes # (Auto) 0.7 x10^3/uL (0.0-1.1) Eosinophils # (Auto) 0.1 x10^3/uL (0.0-0.7) Basophils # (Auto) 0.0 x10^3/uL (0.0-0.2) Sodium Level 141 mmol/L (136-145) 141 mmol/L (136-145) Potassium Level 2.7 mmol/L (3.5-5.1) 3.4 mmol/L (3.5-5.1) Chloride Level 104 mmol/L (98-107) 106 mmol/L (98-107) Carbon Dioxide Level 31 mmol/L (21-32) 27 mmol/L (21-32) Anion Gap 6 (6-14) 8 (6-14) Blood Urea Nitrogen 9 mg/dL (7-20) 8 mg/dL (7-20) Creatinine 1.2 mg/dL (0.6-1.0) 0.9 mg/dL (0.6-1.0) Estimated GFR (Cockcroft-Gault) 58.3 81.2 BUN/Creatinine Ratio 8 (6-20) Glucose Level 293 mg/dL (70-99) 189 mg/dL (70-99) Calcium Level 8.9 mg/dL (8.5-10.1) 7.8 mg/dL (8.5-10.1) Magnesium Level 1.8 mg/dL (1.8-2.4) Total Bilirubin 0.6 mg/dL (0.2-1.0) Aspartate Amino Transf (AST/SGOT) 17 U/L (15-37) Alanine Aminotransferase (ALT/SGPT) 15 U/L (14-59) Alkaline Phosphatase 79 U/L (46-116) Total Protein 6.8 g/dL (6.4-8.2) Albumin 3.2 g/dL (3.4-5.0) Albumin/Globulin Ratio 0.9 (1.0-1.7) Lipase 185 U/L (73-393) VTE Prophylaxis Ordered VTE Prophylaxis Devices: Yes VTE Pharmacological Prophylaxi: Yes Assessment/Plan Assessment/Plan IMPRESSION 1. Marked hypokalemia 2. suspect gi loss of lytes 3. morbid obesity 4. diabetes 5. hypertension 6. elevated cr of 1.2 on admit plan 1. replace k 2. accuchecks 3. hold celebrex due to elevated cr 4. lovenox dvt prophylaxis 5. chk PM cortisol NAVEEN BLACKWOOD MD Apr 04, 2018 11:05
[2018-04-04] MEDS ORDERED: ALBUTEROL SULFATE 2.5 MG/3 ML NEBU. NEB PRN (12:30)
[2018-04-04] MEDS ORDERED: CELECOXIB 100 MG CAPSULE. PO SCH (13:00)
[2018-04-04] MEDS: FERROUS SULFATE 325 MG TABLET. PO SCH (13:16)
[2018-04-04] MEDS: CETIRIZINE HCL 10 MG TABLET. PO SCH (13:17)
[2018-04-04] MEDS: FAMOTIDINE 20 MG TABLET. PO SCH (13:17)
[2018-04-04] MEDS: ACETAMINOPHEN 325 MG TABLET. PO PRN (13:18)
[2018-04-04] MEDS: hydroCHLOROthiazide 12.5 MG CAPSULE PO SCH (13:18)
[2018-04-04] MEDS: LISINOPRIL 10 MG TABLET PO SCH (13:19)
[2018-04-04] MEDS ORDERED: POTASSIUM CHLORIDE 20 MEQ TABLET.ER. PO ONE (13:30)
[2018-04-04 15:00] VITALS: BP 143/94
[2018-04-04] MEDS: PHENOL ORAL SPRAY 177ML BOTTLE. PO PRN ×2 (18:56→23:48)
[2018-04-04 19:00] VITALS: BP 139/87
[2018-04-04] MEDS ORDERED: ENOXAPARIN 40 MG/0.4 ML SYRINGE. SQ SCH (21:00)
[2018-04-04] MEDS: ATORVASTATIN CALCIUM 10 MG TABLET. PO SCH (22:03)
[2018-04-04 23:00] VITALS: BP 145/85
[2018-04-04] MEDS: OXYMETAZOLINE 0.05% NASAL SPRAY 30ML BOTTLE. NS PRN (23:47)
[2018-04-05 03:00] VITALS: BP 120/72
[2018-04-05 07:00] VITALS: BP 157/82
[2018-04-05] MEDS: DAPAGLIFLOZIN PO SCH (09:00)
[2018-04-05] MEDS: [UNRECOGNIZED DRUG - OTHER] PO SCH (09:00)
[2018-04-05] MEDS: METFORMIN HCL PO SCH (09:00)
[2018-04-05] MEDS: OXYMETAZOLINE 0.05% NASAL SPRAY 30ML BOTTLE. NS PRN ×2 (10:27→21:30)
[2018-04-05] MEDS: PHENOL ORAL SPRAY 177ML BOTTLE. PO PRN ×2 (10:27→21:30)
[2018-04-05] MEDS: POTASSIUM CHLORIDE 20 MEQ TABLET.ER. PO SCH (10:28)
[2018-04-05] MEDS: hydroCHLOROthiazide 12.5 MG CAPSULE PO SCH (10:29)
[2018-04-05] MEDS: CETIRIZINE HCL 10 MG TABLET. PO SCH (10:29)
[2018-04-05] MEDS: LISINOPRIL 10 MG TABLET PO SCH (10:29)
[2018-04-05] MEDS: FERROUS SULFATE 325 MG TABLET. PO SCH (10:30)
[2018-04-05] MEDS: FAMOTIDINE 20 MG TABLET. PO SCH (10:30)
[2018-04-05] MEDS: ACETAMINOPHEN 325 MG TABLET. PO PRN ×2 (10:37→21:30)
--- NOTE | 2018-04-05 10:38 | PDOC ---
PROGRESS NOTES Chief Complaint Chief Complaint Viral syndrome NEg strep throat Marked hypokalemia sec to GI loss, from diarrhea . morbid obesity . diabetes controlled . hypertension controlled SAMUEL VMN sec to GI loss History of Present Illness History of Present Illness Was able to take a shower But still feels puny Very congested Sounds nasally congested chest x-ray is read as normal Strep throat neg I did offer her to discharge as this appears like viral syndrome, she still feels unwell to do that during my rounds early this morning Plan: Start Sudafed Flonase H2 antagonist Okay to be off fluids No more tests today, no labs scheduled for tomorrow If she feels ready to go home later then okay to do that later or tomorrow morning Discussed with RN at bedside check a flu swab Vitals Vitals Vital Signs Date Time Temp Pulse Resp B/P (MAP) Pulse Ox O2 Delivery O2 Flow Rate FiO2 04/05/18 10:29 90 157/82 04/05/18 07:00 97.9 18 95 Room Air 97.9 Physical Exam General: Oriented X3, Cooperative, No acute distress Heart: Regular rate, Normal S1, Normal S2, No murmurs Lungs: Clear Abdomen: Normal bowel sounds, Soft, No tenderness Extremities: No clubbing, No cyanosis, No edema, Normal pulses Skin: No rashes, No breakdown, No significant lesion Labs LABS Laboratory Tests Test 04/04/18 15:30 Cortisol PM Sample 5.9 ug/dL (3.1-16.7) Review of Systems Review of Systems Sounds congested, runny nose, otherwise no chest pain, no SOA, no fevers, no abdominal pain, no more diarrhea Assessment and Plan Assessmemt and Plan Problems Medical Problems: (1) Hypokalemia Status: Acute (2) Viral syndrome Status: Acute Comment Review of Relevant I have reviewed the following items patrice (where applicable) has been applied. Labs Laboratory Tests Test 04/03/18 19:15 04/03/18 19:41 04/03/18 19:49 04/04/18 03:20 Urine Collection Type Unknown Urine Color Yellow Urine Clarity Clear Urine pH 5.5 Urine Specific [place] >=1.030 Urine Protein Negative mg/dL (NEG-TRACE) Urine Glucose (UA) >=1000 mg/dL (NEG) Urine Ketones (Stick) Negative mg/dL (NEG) Urine Blood Negative (NEG) Urine Nitrite Negative (NEG) Urine Bilirubin Negative (NEG) Urine Urobilinogen Dipstick 1.0 mg/dL (0.2 mg/dL) Urine Leukocyte Esterase Negative (NEG) Urine RBC Rare /HPF (0-2) Urine WBC Occ /HPF (0-4) Urine Squamous Epithelial Cells Mod /LPF Urine Bacteria Few /HPF (0-FEW) Urine Test Negative (NEG) Group A Streptococcus Rapid Negative (NEGATIVE) White Blood Count 6.3 x10^3/uL (4.0-11.0) Red Blood Count 4.20 x10^6/uL (3.50-5.40) Hemoglobin 11.1 g/dL (12.0-15.5) Hematocrit 33.2 % (36.0-47.0) Mean Corpuscular Volume 79 fL (79-100) Mean Corpuscular Hemoglobin 26 pg (25-35) Mean Corpuscular Hemoglobin Concent 34 g/dL (31-37) Red Cell Distribution Width 15.5 % (11.5-14.5) Platelet Count 191 x10^3/uL (140-400) Neutrophils (%) (Auto) 73 % (31-73) Lymphocytes (%) (Auto) 15 % (24-48) Monocytes (%) (Auto) 11 % (0-9) Eosinophils (%) (Auto) 1 % (0-3) Basophils (%) (Auto) 1 % (0-3) Neutrophils # (Auto) 4.6 x10^3uL (1.8-7.7) Lymphocytes # (Auto) 0.9 x10^3/uL (1.0-4.8) Monocytes # (Auto) 0.7 x10^3/uL (0.0-1.1) Eosinophils # (Auto) 0.1 x10^3/uL (0.0-0.7) Basophils # (Auto) 0.0 x10^3/uL (0.0-0.2) Sodium Level 141 mmol/L (136-145) 141 mmol/L (136-145) Potassium Level 2.7 mmol/L (3.5-5.1) 3.4 mmol/L (3.5-5.1) Chloride Level 104 mmol/L (98-107) 106 mmol/L (98-107) Carbon Dioxide Level 31 mmol/L (21-32) 27 mmol/L (21-32) Anion Gap 6 (6-14) 8 (6-14) Blood Urea Nitrogen 9 mg/dL (7-20) 8 mg/dL (7-20) Creatinine 1.2 mg/dL (0.6-1.0) 0.9 mg/dL (0.6-1.0) Estimated GFR (Cockcroft-Gault) 58.3 81.2 BUN/Creatinine Ratio 8 (6-20) Glucose Level 293 mg/dL (70-99) 189 mg/dL (70-99) Calcium Level 8.9 mg/dL (8.5-10.1) 7.8 mg/dL (8.5-10.1) Magnesium Level 1.8 mg/dL (1.8-2.4) Total Bilirubin 0.6 mg/dL (0.2-1.0) Aspartate Amino Transf (AST/SGOT) 17 U/L (15-37) Alanine Aminotransferase (ALT/SGPT) 15 U/L (14-59) Alkaline Phosphatase 79 U/L (46-116) Total Protein 6.8 g/dL (6.4-8.2) Albumin 3.2 g/dL (3.4-5.0) Albumin/Globulin Ratio 0.9 (1.0-1.7) Lipase 185 U/L (73-393) Test 04/04/18 15:30 Cortisol PM Sample 5.9 ug/dL (3.1-16.7) Laboratory Tests Test 04/04/18 15:30 Cortisol PM Sample 5.9 ug/dL (3.1-16.7) Medications Current Medications Sodium Chloride 1,000 ml @ 1,000 mls/hr 1X ONCE IV Last administered on at 19:50; Start 04/03/18 at 19:45; Stop 04/03/18 at 20:44; Status DC Acetaminophen (Tylenol) 1,000 mg 1X ONCE PO Last administered on 04/03/18at 19: 51; Start 04/03/18 at 19:45; Stop 04/03/18 at 19:46; Status DC Amlodipine Besylate (Norvasc) 10 mg 1X ONCE PO Last administered on 04/03/18at 19:51; Start 04/03/18 at 19:45; Stop 04/03/18 at 19:46; Status DC Potassium Chloride (KCl Oral Soln) 60 meq 1X ONCE PO Last administered on 04/03at 20:31; Start 04/03/18 at 20:15; Stop 04/03/18 at 20:19; Status DC Ondansetron HCl (Zofran) 4 mg 1X ONCE IV Last administered on 04/03/18at 20:30 ; Start 04/03/18 at 20:15; Stop 04/03/18 at 20:19; Status DC Magnesium Sulfate/ Dextrose 100 ml @ 100 mls/hr 1X ONCE IV Last administered on 04/03/18at 21:22; Start 04/03/18 at 21:00; Stop 04/03/18 at 21:59; Status DC Potassium Chloride/Sodium Chloride 1,000 ml @ 125 mls/hr 1X ONCE IV Last administered on 04/03/18at 21:22; Start 04/03/18 at 21:00; Stop 04/04/18 at 04:59 ; Status DC Clonidine HCl (Catapres) 0.1 mg 1X ONCE PO Last administered on 04/03/18at 21: 21; Start 04/03/18 at 21:00; Stop 04/03/18 at 21:02; Status DC Ferrous Sulfate (Feosol) 325 mg DAILY PO Last administered on 04/05/18at 10:30; Start 04/04/18 at 13:00 Albuterol Sulfate (Ventolin Neb Soln) 2.5 mg PRN Q6HRS PRN NEB SHORTNESS OF BREATH; Start 04/04/18 at 12:30 Celecoxib (CeleBREX) 400 mg BID PO Last administered on 04/04/18at 13:16; Start 04/04/18 at 13:00; Stop 04/04/18 at 15:06; Status DC Non-Formulary Medication (Dapagliflozin/ Metformin HCl (Xigduo Xr 5 mg-1,000 mg Tablet)) 1 each DAILY PO ; Start 04/05/18 at 09:00; Status UNV Lisinopril (Prinivil) 10 mg DAILY PO Last administered on 04/05/18at 10:29; Start 04/04/18 at 13:00 Cetirizine HCl (ZyrTEC) 10 mg DAILY PO Last administered on 8/24/18at 10:29; Start 04/04/18 at 13:00 Atorvastatin Calcium (Lipitor) 5 mg QHS PO Last administered on 04/04/18 22:03 ; Start 04/04/18 at 21:00 Famotidine (Pepcid) 20 mg DAILY PO Last administered on 04/05/18 10:30; Start 04/04/18 at 13:00 Hydrochlorothiazide (Microzide) 12.5 mg DAILY PO Last administered on 10:29; Start 04/04/18 at 13:00 Potassium Chloride (Klor-Con) 40 meq 1X ONCE PO Last administered on 13:17; Start 04/04/18 at 13:30; Stop 04/04/18 at 13:31; Status DC Acetaminophen (Tylenol) 650 mg PRN Q6HRS PRN PO MILD PAIN Last administered on 04/04/18 13:18; Start 04/04/18 at 12:45 Throat Lozenges (Chloraseptic) 1 spray PRN Q2HR PRN PO SORE THROAT Last administered on 04/05/18at 10:27; Start 04/04/18 at 12:45 Enoxaparin Sodium (Lovenox 40mg Syringe) 40 mg Q12H SQ Last administered on at 22:05; Start 04/04/18 at 21:00; Stop 04/05/18 at 08:47; Status DC Potassium Chloride (Klor-Con) 20 meq DAILYWBKFT PO Last administered on at 10:28; Start 04/05/18 at 08:00 Oxymetazoline HCl (Afrin) 2 spray PRN Q2HR PRN NS NASAL CONGESTION Last administered on 04/05/18at 10:27; Start 04/04/18 at 23:45 Cetirizine HCl (ZyrTEC) 10 mg DAILY PO ; Start 04/05/18 at 10:45; Status UNV Fluticasone Propionate (Flonase) 2 spray DAILY NS ; Start 04/05/18 at 10:45; Status UNV Pseudoephedrine HCl (Sudafed 12-Hour) 120 mg BID PO ; Start 04/05/18 at 10:45; Status UNV Active Scripts Active Proair Respiclick (Albuterol Sulfate) 90 Mcg Aer.pow.ba 1 Puff IH PRN Q6HRS PRN Reported Ferrous Sulfate 325 Mg Tablet 1 Tab PO DAILY Claritin (Loratadine) 10 Mg Tablet 10 Mg PO DAILY Lovastatin 20 Mg Tablet 20 Mg PO HS Lisinopril-Hctz 10-12.5 Mg Tab (Lisinopril/Hydrochlorothiazide) 1 Each Tablet 1 Tab PO DAILY Celebrex (Celecoxib) 200 Mg Capsule 400 Mg PO BID 30 Days Xigduo Xr 5 mg-1,000 mg Tablet (Dapagliflozin/Metformin HCl) 1 Each Tab.bp.24h 1 Each PO DAILY Zantac (Ranitidine Hcl) 150 Mg Tablet 150 Mg PO DAILY Vitals/I & O Vital Sign - Last 24 Hours 04/04/18 04/04/18 04/04/18 04/04/18 11:00 13:19 15:00 19:00 Temp 98.4 98.0 97.9 98.4 98.0 97.9 Pulse 92 92 97 88 Resp 16 16 18 B/P (MAP) 139/89 (106) 139/89 143/94 (110) 139/87 (104) Pulse Ox 98 98 97 O2 Delivery Room Air Room Air Room Air 04/04/18 04/04/18 04/05/18 04/05/18 20:00 23:00 03:00 07:00 Temp 98.6 98.1 97.9 98.6 98.1 97.9 Pulse 85 88 90 Resp 17 17 18 B/P (MAP) 145/85 (105) 120/72 (88) 157/82 (107) Pulse Ox 96 96 95 O2 Delivery Room Air Room Air Room Air Room Air 04/05/18 10:29 Pulse 90 B/P (MAP) 157/82 Intake and Output 04/04/18 04/04/18 04/05/18 15:00 23:00 07:00 Intake Total 680 ml Balance 680 ml YVONNE GALICIA MD Apr 05, 2018 10:38
[2018-04-05] MEDS ORDERED: CETIRIZINE HCL 10 MG TABLET. PO SCH (10:45)
[2018-04-05 11:00] VITALS: BP 136/87
[2018-04-05 11:50] LABS: CALCIUM 8.6 mg/dL (8.5-10.1); GFR 71.9; POTASSIUM 3.7 mmol/L (3.5-5.1)
[2018-04-05 15:00] VITALS: BP 114/75
[2018-04-05 15:54] LABS: INFLUENZA A PATIENT NEGATIVE (NEGATIVE); INFLUENZA B PATIENT NEGATIVE (NEGATIVE)
[2018-04-05] MEDS: PSEUDOEPHEDRINE ER 120 MG TABLET.ER. PO SCH ×2 (17:23→21:00)
[2018-04-05] MEDS: FLUTICASONE 50MCG/NASAL SPRAY 16GM BOTTLE. NS SCH (17:24)
[2018-04-05 19:00] VITALS: BP 134/79
[2018-04-05] MEDS: ATORVASTATIN CALCIUM 10 MG TABLET. PO SCH (21:30)
[2018-04-05 22:54] VITALS: BP 143/99
[2018-04-06 02:47] VITALS: BP 146/78
[2018-04-06 07:00] VITALS: BP 147/90
[2018-04-06] MEDS: METFORMIN HCL PO SCH (09:00)
[2018-04-06] MEDS: DAPAGLIFLOZIN PO SCH (09:00)
[2018-04-06] MEDS: [UNRECOGNIZED DRUG - OTHER] PO SCH (09:00)
[2018-04-06] MEDS: FAMOTIDINE 20 MG TABLET. PO SCH (09:43)
[2018-04-06] MEDS: PSEUDOEPHEDRINE ER 120 MG TABLET.ER. PO SCH (09:43)
[2018-04-06] MEDS: hydroCHLOROthiazide 12.5 MG CAPSULE PO SCH (09:43)
[2018-04-06] MEDS: LISINOPRIL 10 MG TABLET PO SCH (09:43)
[2018-04-06] MEDS: CETIRIZINE HCL 10 MG TABLET. PO SCH (09:43)
[2018-04-06] MEDS: POTASSIUM CHLORIDE 20 MEQ TABLET.ER. PO SCH (09:43)
[2018-04-06] MEDS: FERROUS SULFATE 325 MG TABLET. PO SCH (09:43)
[2018-04-06] MEDS: OXYMETAZOLINE 0.05% NASAL SPRAY 30ML BOTTLE. NS PRN (09:50)
[2018-04-06] MEDS: FLUTICASONE 50MCG/NASAL SPRAY 16GM BOTTLE. NS SCH (09:51)
[2018-04-06] MEDS: ACETAMINOPHEN 325 MG TABLET. PO PRN (09:51)
[2018-04-06] MEDS: PHENOL ORAL SPRAY 177ML BOTTLE. PO PRN (09:51)
[2018-04-06] MEDS ORDERED: OXYM30SP11 NS (09:52)
[2018-04-06] MEDS ORDERED: PSEU120T12 PO (09:52)
[2018-04-06] MEDS ORDERED: CETI10TA16 PO (09:52)
--- NOTE | 2018-04-06 09:55 | PDOC3 ---
Discharge Summary Visit Information Date of Admission: Apr 03, 2018 Date of Discharge: Apr 06, 2018 Admitting Diagnosis Comment: Viral syndrome NEg strep throat neg flu SAMUEL VMN sec to GI loss Final Diagnosis Problems Medical Problems: (1) Hypokalemia Status: Acute (2) Viral syndrome Status: Acute Brief Hospital Course Allergies Allergies Coded Allergies Type Severity Reaction Last Updated Verified fish derived Allergy Severe ANAPHYLAXIS 12/11/17 Yes Vital Signs Vital Signs Date Time Temp Pulse Resp B/P (MAP) Pulse Ox O2 Delivery O2 Flow Rate FiO2 04/06/18 09:43 86 147/90 04/06/18 07:00 98.6 18 99 Room Air 98.6 Lab Results Laboratory Tests Test 04/04/18 15:30 04/05/18 10:55 04/05/18 15:20 Cortisol PM Sample 5.9 ug/dL (3.1-16.7) Sodium Level 136 mmol/L (136-145) Potassium Level 3.7 mmol/L (3.5-5.1) Chloride Level 104 mmol/L (98-107) Carbon Dioxide Level 28 mmol/L (21-32) Anion Gap 4 (6-14) Blood Urea Nitrogen 10 mg/dL (7-20) Creatinine 1.0 mg/dL (0.6-1.0) Estimated GFR (Cockcroft-Gault) 71.9 Glucose Level 251 mg/dL (70-99) Calcium Level 8.6 mg/dL (8.5-10.1) Influenza Type A Antigen Negative (NEGATIVE) Influenza Type B Antigen Negative (NEGATIVE) Laboratory Tests Test 04/05/18 10:55 04/05/18 15:20 Sodium Level 136 mmol/L (136-145) Potassium Level 3.7 mmol/L (3.5-5.1) Chloride Level 104 mmol/L (98-107) Carbon Dioxide Level 28 mmol/L (21-32) Anion Gap 4 (6-14) Blood Urea Nitrogen 10 mg/dL (7-20) Creatinine 1.0 mg/dL (0.6-1.0) Estimated GFR (Cockcroft-Gault) 71.9 Glucose Level 251 mg/dL (70-99) Calcium Level 8.6 mg/dL (8.5-10.1) Influenza Type A Antigen Negative (NEGATIVE) Influenza Type B Antigen Negative (NEGATIVE) Brief Hospital Course Ms. Escobedo is a 47 within because of critical hypokalemia from GI loss and possibly viral syndrome. She sounded nasally decongested, feels puny. No more recurrence of diarrhea since admission. But workup is negative. Negative strep throat, negative flu. Stayed 24-48 hrs. and is feeling better after I started some H2 antagonist, Sudafed etc. and other supportive meds. To go home on a Z- Shahbaz, Sudafed H2 antagonists. Patient seen and examined, DC less than 30 minutes Consults performed none procedures performed none Discharge Information Condition at Discharge: Improved, Stable Follow Up: Weeks (PCP if no better) Disposition/Orders: D/C to Home Scheduled Celecoxib (Celebrex) 200 Mg Capsule, 400 MG PO BID for 30 Days, #120 Ref 0 ( Reported) Entered as Reported by: FELIPE GRANADOS on 12/11/171350 Last Action: Converted on 04/04/181216 by NAVEEN BLACKWOOD MD Cetirizine Hcl (Cetirizine Hcl) 10 Mg Tablet, 10 MG PO DAILY for 14 Days, #14 Prescribed by: YVONNE GALICIA on 04/06/18 0952 Dapagliflozin/Metformin HCl (Xigduo Xr 5 mg-1,000 mg Tablet) 1 Each Tab.bp.24h, 1 EACH PO DAILY, (Reported) Entered as Reported by: FELIPE GRANADOS on 12/11/171350 Last Action: Converted on 04/04/181216 by NAVEEN BLACKWOOD MD Ferrous Sulfate (Ferrous Sulfate) 325 Mg Tablet, 1 TAB PO DAILY, #30 Ref 3 ( Reported) Entered as Reported by: LUC ABDALLA on 04/04/18 0026 Last Action: Continued on 04/04/181216 by NAVEEN BLACKWOOD MD Lisinopril/Hydrochlorothiazide (Lisinopril-Hctz 10-12.5 Mg Tab) 1 Each Tablet, 1 TAB PO DAILY, #30 Ref 5 (Reported) Entered as Reported by: FELIPE GRANADOS on 12/11/171350 Last Action: Converted on 04/04/181216 by NAVEEN BLACKWOOD MD Loratadine (Claritin) 10 Mg Tablet, 10 MG PO DAILY, (Reported) Entered as Reported by: FELIPE GRANADOS on 12/11/171350 Last Action: Converted on 04/04/181216 by NAVEEN BLACKWOOD MD Lovastatin (Lovastatin) 20 Mg Tablet, 20 MG PO HS, (Reported) Entered as Reported by: FELIPE GRANADOS on 12/11/17 1351 Last Action: Converted on 04/04/181216 by NAVEEN BLACKWOOD MD Pseudoephedrine Hcl (Sinus 12-Hour) 120 Mg Tablet.er, 120 MG PO BID for 14 Days , #28 Prescribed by: YVONNE GALICIA on 04/06/18 0952 Ranitidine Hcl (Zantac) 150 Mg Tablet, 150 MG PO DAILY, (Reported) Entered as Reported by: FELIPE GRANADOS on 12/11/17 1351 Last Action: Converted on 04/04/181216 by NAVEEN BLACKWOOD MD Scheduled PRN Albuterol Sulfate (Proair Respiclick) 90 Mcg Aer.pow.ba, 1 PUFF IH PRN Q6HRS PRN for SHORTNESS OF BREATH, #1 Prescribed by: Roseann Galeana APRN on 07/18/17 0028 Last Action: Converted on 04/04/181216 by NAVEEN BLACKWOOD MD Oxymetazoline Hcl (Nasal Decongestant) 30 Ml [place], 2 SPRAY NS PRN Q2HR PRN for NASAL CONGESTION for 14 Days Prescribed by: YVONNE GALICIA on 04/06/18 0952 YVONNE GALICIA MD Apr 06, 2018 09:55
[2018-04-06 11:00] VITALS: BP 150/67
== END 2018-04-06 13:00 | disposition home or self-care (01) | DRG 640 ==
LOC: ER 18:55 → 5 SOUTH 21:30
PROVIDERS: ADMIT Internal Medicine; ATTEND Internal Medicine
DX: E87.6 Hypokalemia (principal); N17.0 Acute kidney failure with tubular necrosis; K21.9 Gastro-esophageal reflux disease without esophagitis; J45.909 Unspecified asthma, uncomplicated; E11.9 Type 2 diabetes mellitus without complications; I10 Essential (primary) hypertension; Z96.659 Presence of unspecified artificial knee joint; B34.9 Viral infection, unspecified; Z83.3 Family history of diabetes mellitus; E66.01 Morbid (severe) obesity due to excess calories; R19.7 Diarrhea, unspecified; Z82.49 Family history of ischemic heart disease and other diseases of the circulatory system
CPT/HCPCS: 36415; 71045; 80048; 80053; 81001; 81025; 82533; 83690; 83735; 85025; 87070; 87804; 87880; 93005; 96365; 96375; J1650; J2405; J3475; J3480; J7030; 99285-25

== ENCOUNTER → 2018-05-17 | Day surgery (SDC) | payer BC ==
[~2018-05-17] MED LIST changes: +CETI10TA16 PO; +FERR325T14 PO; +FLUT9.9S NS; +HYDROmorphone 2 MG/ML VIAL IV PRN; +IV RINGERS,LACTATED 1000ML 1,000 ML IV SCH; +LIDOCAINE 1% PF 2 ML VIAL. ID PRN; +LIDOCAINE 2% PF 2ML VIAL. ONE; +MORPHINE SULFATE 2 MG/ML VIAL. IV PRN; +ONDANSETRON PF 4 MG/2 ML VIAL. IV PRN; +OXYM30SP11 NS; +PROCHLORPERAZINE 10 MG/2 ML VIAL. IV PRN; +PROPOFOL 20 ML IV ONE; +PSEU120T12 PO; +fentaNYL PF VIAL 100 MCG/2 ML VIAL IV PRN
[2018-05-17 13:37] LABS: U PREG PATIENT NEGATIVE (NEG)
[2018-05-17 14:25] VITALS: BP 151/97
--- NOTE | 2018-05-20 15:07 | PATHOLOGY ---
[facility] Accession Number: [id number] . 01 Material submitted: . ANTRUM . 01 Clinical history: . Pre-OP DX: Ulcer Post-OP DX: Rule out H. pylori . 02 Diagnosis: Gastric biopsy, antrum: - Congestion and mild chronic inflammation. (JPM:nato; 05/20/2018) QMS/05/20/2018 . 02 Comment: Sections of the gastric antral biopsy show congestion and mild chronic inflammation. A properly controlled immunoperoxidase stain for Helicobacter is negative for Helicobacter organisms. There is no evidence of malignancy. (JPM:nato; 05/20/2018) . . Special stain performed: Immunoperoxidase stain for Helicobacter . 02 Electronically signed: . Patrick Hummel MD, Pathologist NPI- [id number] . 01 Gross description: . Received in formalin labeled "Gregg, Shameka, antrum," is a single segment of cabello soft tissue measuring 0.4 cm in maximum dimension. The specimen is entirely submitted in cassette A1. (TSD; 05/17/2018) TOB/TOB . 02 Pathologist provided ICD-10: K29.50, K31.9 . 02 CPT . 260414, O29930 Specimen Comment: A courtesy copy of this report has been sent to Specimen Comment: [phone], . Specimen Comment: Report sent to / DR LOGAN Performed at: 01 [facility] [address], [place] [id number] MD Uri Sher MD Phone: [phone] Performed at: 02 [facility] [address] [place], [place] [id number] MD Patrick Hummel MD Phone: [phone]
== END | disposition home or self-care (01) ==
LOC: ENDOS 12:38
PROVIDERS: ATTEND Surgery
DX: K25.9 Gastric ulcer, unspecified as acute or chronic, without hemorrhage or perforation (principal); K29.50 Unspecified chronic gastritis without bleeding; Z79.899 Other long term (current) drug therapy; I10 Essential (primary) hypertension; E66.9 Obesity, unspecified; Z68.42 Body mass index [BMI] 45.0-49.9, adult; Z90.49 Acquired absence of other specified parts of digestive tract; Z98.890 Other specified postprocedural states; Z82.49 Family history of ischemic heart disease and other diseases of the circulatory system; Z83.3 Family history of diabetes mellitus; Z91.013 Allergy to seafood
CPT/HCPCS: 43239; 81025; 88305; 88342; J2001; J2704

== ENCOUNTER 2018-06-26 06:02 | Day surgery (SDC) | payer BC ==
[~2018-06-26] VITALS: Ht 161.3 cm; Wt 118.6 kg
[~2018-06-26 06:02] MED LIST changes: +AMLO5TAB7 PO; +HYDR-3164 PO; -HYDR-971 PO; +HYDR12.58 PO; -HYDROmorphone 2 MG/ML VIAL IV PRN; -IV RINGERS,LACTATED 1000ML 1,000 ML IV SCH; -LIDOCAINE 1% PF 2 ML VIAL. ID PRN; -LIDOCAINE 2% PF 2ML VIAL. ONE; +LISI-130 PO; +METF500T16 PO; +METR-84 PO; -METR500T8 PO; -MORPHINE SULFATE 2 MG/ML VIAL. IV PRN; -ONDANSETRON PF 4 MG/2 ML VIAL. IV PRN; -PROCHLORPERAZINE 10 MG/2 ML VIAL. IV PRN; -PROPOFOL 20 ML IV ONE; +SEMA0.25 SQ; +ceFAZolin SODIUM 3 GM in IV DEXTROSE 5% 100ML 100 ML IV PRN; -fentaNYL PF VIAL 100 MCG/2 ML VIAL IV PRN
[2018-06-26 06:59] LABS: U PREG PATIENT NEGATIVE (NEG)
[2018-06-26] MEDS ORDERED: IV RINGERS,LACTATED 1000ML 1,000 ML IV SCH (07:00)
[2018-06-26] MEDS ORDERED: fentaNYL PF VIAL 100 MCG/2 ML VIAL IV PRN ×2 (07:00)
[2018-06-26] MEDS ORDERED: HYDROmorphone 2 MG/ML VIAL IV PRN (07:00)
[2018-06-26] MEDS ORDERED: ONDANSETRON PF 4 MG/2 ML VIAL. IV PRN (07:00)
[2018-06-26] MEDS ORDERED: MORPHINE SULFATE 2 MG/ML VIAL. IV PRN (07:00)
[2018-06-26] MEDS ORDERED: PROCHLORPERAZINE 10 MG/2 ML VIAL. IV PRN (07:00)
[2018-06-26] MEDS ORDERED: LIDOCAINE 1% PF 2 ML VIAL. ID PRN (07:00)
[2018-06-26] MEDS ORDERED: PROPOFOL 20 ML IV ONE (07:07)
[2018-06-26] MEDS ORDERED: LIDOCAINE 1% 20 ML VIAL. ONE (07:07)
[2018-06-26] MEDS ORDERED: EPINEPHrine VIAL 30 MG/30 ML VIAL ONE (07:07)
[2018-06-26] MEDS ORDERED: DEXAMETHASONE SOD PHOS 20 MG/5 ML VIAL. ONE (07:07)
[2018-06-26] MEDS ORDERED: KETOROLAC 30 MG/ML INJ FOR OR. INJ ONE (07:07)
[2018-06-26] MEDS ORDERED: BUPIVACAINE 0.5% 50 ML VIAL. ONE (07:07)
[2018-06-26] MEDS ORDERED: ONDANSETRON PF 4 MG/2 ML VIAL. ONE (07:07)
[2018-06-26] MEDS ORDERED: MIDAZOLAM HCL/PF 2 MG/2 ML VIAL. ONE (07:08)
[2018-06-26] MEDS ORDERED: SEVOFLURANE > 120 MINUTES. IH ONE (07:08)
[2018-06-26] MEDS ORDERED: ROPIVacaine 0.5% PF 20 ML VIAL. ONE (07:16)
--- NOTE | 2018-06-26 07:41 | DISCH ---
DISCHARGE INSTRUCTIONS Condition on Discharge Condition on Discharge: Stable Activity After Discharge Activity Instructions for Disc: Activity as tolerated, Other, see below Other activity instructions: arm to remain in sling; NWB Driving Instructions after Dis: Do not drive today Weight Bearing Status after Di: As tolerated, Non weight bearing Diet after Discharge Diet after Discharge: Regular Diet Texture: Regular Liquid Texture: Thin Liquid Swallowing Supervision: None needed Wound Incision Care Wound/Incision Care: Ice to area for comfort, Keep wound/cast CDI, Change dressing Other wound/incision instructi: ok to change dressing after 2 days Checks after Discharge Checks after discharge: Check blood press - daily, Check your Temp as needed Contacting the DRQuita after DC Call your doctor for: Concerns you may have Follow-Up Follow up with: Dona in 2 wks Treatment/Equipment after DC Adaptive Equipment Issued: None MELANIA HOFF II, MD Jun 26, 2018 07:41
--- NOTE | 2018-06-26 09:02 | PDOC4 ---
Operative Note Operative Note Date of procedure: 06/26/2018 Surgeon: Norberto Hoff Customer Account Executive: Anushka Decker, certified adapted physical educator Preoperative diagnosis: #1 left shoulder rotator cuff tear, incomplete #2 left shoulder degenerative labral fraying #3 biceps tendinitis left shoulder Postoperative diagnosis: #1 left shoulder rotator cuff tear, supraspinatus #2 degenerative joint disease left shoulder #3 degenerative fraying left shoulder labrum #4 biceps tendinitis left shoulder Procedures performed: #1 arthroscopic left shoulder rotator cuff repair #2 arthroscopic glenoid microfracture #3 arthroscopic biceps tenotomy #4 debridement of labrum circumferentially Anesthesia: Gen. plus regional nerve block Complications: None Blood loss: 10 mL Components inserted: Mckeon and nephAxium Nanofibers Helacoil suture anchor 1 Findings: High-grade interstitial tear at supraspinatus Intact rotator cuff for the remainder of it Exposed bone at glenoid Grade 2 changes humeral head Degenerative labral fraying Longitudinal split and biceps tendon with fraying No loose bodies Reason for procedure: Patient is a very pleasant 47-year-old female with persistent shoulder pain that is interfering with her activities of daily living. She had tried and failed conservative therapies including injections, rehabilitation and anti-inflammatories and despite this her pain was progressive. Therefore we had a discussion of the risks, benefits, alternatives to the above procedure and she wished to proceed. Description of procedure: Patient was greeted in the preoperative area by myself for the correct extremity was verified and marked. She was taken back to the preoperative holding area adjacent to the operating room where a regional nerve block was placed by the anesthesiology team. She was then taken back to the operative suite and her antibiotics were started as she was brought back. Once in the operative room, she was transferred gently supine to the operating room table and secured the bed with all pressure points padded after being sat up in a beachchair position with a large pillow under her legs and C-spine maintained in neutral position. We then proceeded to prep and drape left upper extremity and shoulder girdle in our usual sterile fashion and conducted our standard preoperative timeout. After this, I palpated and marked surface anatomy and used a spinal needle to localize a posterior superior portal and incised skin in accordance with this. It should be noted part of our draping did include Ioban throughout the entire periphery. After using spinal to localize a posterior superior portal, I incised skin in accordance with this and introduce the blunt arthroscopic trocar into the glenohumeral joint followed by the camera. I then used a spinal needle to localize an anterosuperior portal and dilated this well. I then conducted my diagnostic arthroscopy after inserting the probe with the above-noted findings. I passed a PDS suture through the frayed degenerative tearing at the rotator cuff and clamped it outside the shoulder. I then debrided the rotator cuff footprint at this area. I then performed extensive debridement of a larger loose flap, 3 x 5 x 3 mm at her glenoid. I debrided her labrum circumferentially. I then perform a biceps tenotomy with Metzenbaum soon anterosuperior portal. I debrided the stump with the shaver. After this I used a microfracture awl impacted several holes into her glenoid confirming that they were appropriately placed with extravasation of marrow elements noted on suction with adjacent shaver area I then removed the arthroscopic instrumentation from the glenohumeral joint and repositioned into the subacromial space and performed a bursectomy after using a spinal needle to localize a lateral portal. I was easily able to violate the substance of the rotator cuff tendon adjacent to my PDS suture Elder and then debrided the tendon and footprint, taking care not to decorticate. I then inspected the rotator cuff tear. It was full-thickness at this point in approximately 8 mm long. I then created an accessory anterolateral portal for a more appropriate trajectory to place my suture anchor which was done with the assistance of an awl to start the hole. I used this accessory anterolateral portal for suture management as well. I then placed a cannula at the lateral portal and used the first pass suture passing device to shuttle the limbs through in a simple configuration and tied them down with arthroscopic knot- tying techniques. The tear was stable to rotation at her shoulder and probing. I removed all excess bone debris and arthroscopic fluid. At this point I removed the arthroscopic interpretation. The portals were closed with simple interrupted 3-0 nylon. The arm and shoulder were cleansed and dried and a sterile bulky dressing was applied followed by an abduction pillow sling. She tolerated surgery well. No complications. At the conclusion of the surgery, she was awakened from anesthesia after being laid supine and transferred gently supine to the recovery room cart and postoperative plan is to discharge her home. She'll be nonweightbearing and use a sling for 4 weeks. We will get her started on physical therapy and I discussed the importance of frequent active assisted range of motion exercises. We will see her in 2 weeks, sooner should a problem arise. NORBERTO HOFF II, MD Jun 26, 2018 09:02
[2018-06-26] MEDS ORDERED: oxyCODONE/APAP 5/325 1 TAB TABLET PO ONE (09:45)
[2018-06-26 10:45] VITALS: BP 148/78
== END 2018-06-26 10:45 | disposition home or self-care (01) ==
LOC: SURG 06:02
PROVIDERS: ATTEND Orthopaedic Surgery Sports Medicine
DX: M75.112 Incomplete rotator cuff tear or rupture of left shoulder, not specified as traumatic (principal); M19.012 Primary osteoarthritis, left shoulder; M24.112 Other articular cartilage disorders, left shoulder; M75.22 Bicipital tendinitis, left shoulder; I10 Essential (primary) hypertension; E66.9 Obesity, unspecified; E78.00 Pure hypercholesterolemia, unspecified; J45.909 Unspecified asthma, uncomplicated; K21.9 Gastro-esophageal reflux disease without esophagitis; E11.9 Type 2 diabetes mellitus without complications; Z68.42 Body mass index [BMI] 45.0-49.9, adult; Z79.899 Other long term (current) drug therapy; Z98.890 Other specified postprocedural states; Z90.49 Acquired absence of other specified parts of digestive tract; Z91.013 Allergy to seafood; Z96.651 Presence of right artificial knee joint
CPT/HCPCS: 29823; 29827; 81025; 82962; A7015; C1782; J0171; J1100; J1885; J2250; J2405; J2704; J2795; J3490

== ENCOUNTER 2018-09-18 22:57 | Emergency (ER) | payer BC, OTHER ==
[~2018-09-18] VITALS: Ht 160 cm; Wt 122.5 kg
[~2018-09-18 22:57] MED LIST changes: +AMLO5TAB10 PO; -AMLO5TAB7 PO; +METR-34 PO; -METR-84 PO; +OXYM-27 NS; -OXYM30SP11 NS; +RANI-376 PO; -RANI150T21 PO; -ceFAZolin SODIUM 3 GM in IV DEXTROSE 5% 100ML 100 ML IV PRN
[2018-09-18 23:25] LABS: BILIRUBIN,URINE SMALL (NEG); CLARITY,URINE CLEAR; COLOR,URINE YELLOW; NITRITE,URINE NEGATIVE (NEG); PROTEIN,URINE 30 mg/dL (NEG-TRACE); UROBILINOGEN,URINE 0.2 mg/dL (0.2 mg/dL)
[2018-09-18 23:29] LABS: SQUAMOUS EPITHELIAL CELL,UR MOD /LPF
[2018-09-18 23:30] LABS: RBC,URINE TNTC /HPF (0-2)
[2018-09-18] MEDS ORDERED: ONDANSETRON PF 4 MG/2 ML VIAL. IV ONE (23:30)
[2018-09-18] MEDS ORDERED: FAMOTIDINE 20 MG/2 ML VIAL IVP ONE (23:30)
[2018-09-18] MEDS ORDERED: IV NORMAL SALINE 1000ML BAG 1,000 ML IV ONE (23:30)
[2018-09-18 23:31] LABS: WBC,URINE OCC /HPF (0-4)
[2018-09-18 23:32] LABS: BACTERIA,URINE FEW /HPF (0-FEW)
--- NOTE | 2018-09-18 23:44 | PHYS DOC ---
Past Medical History Past Medical History: Asthma, Diabetes-Type II, GERD, Hypertension Additional Past Medical Histor: SEASONAL ALLERGIES (JENNY PARHAM APRN) Past Surgical History: Cholecystectomy, , Knee Replacement, Tonsillectomy (JENNY PARHAM APRN) Alcohol Use: None Drug Use: None (JENNY PARHAM APRN) Adult General Chief Complaint Chief Complaint: NAUSEA/VOMITING/DIARRHA HPI HPI Patient is a 48 year old female who presents with 3 days of nausea, vomiting, diarrhea, chills, body aches and cough. Patient states the cough causes her to have chest pain. Patient states she is a diabetic and has not been checking her blood sugars but is taking her diabetes medications. (JENNY PARHAM APRN) Review of Systems Review of Systems Constitutional: Denies fever or chills [] Eyes: Denies change in visual acuity, redness, or eye pain [] HENT: Denies nasal congestion or sore throat [] Respiratory: cough or denies shortness of breath [] Cardiovascular: Chest pain with cough GI: Generalized abdominal pain, nausea, vomiting, denies bloody stools, + diarrhea [] : Denies dysuria or hematuria [] Musculoskeletal: Denies back pain or joint pain [] Integument: Denies rash or skin lesions [] Neurologic: Denies headache, focal weakness or sensory changes [] All other systems were reviewed and found to be within normal limits, except as documented in this note. (JENNY PARHAM APRN) Current Medications Current Medications Current Medications Medications (Trade) Dose Ordered Sig/[facility] Start Time Stop Time Status Last Admin Dose Admin Famotidine (Pepcid Vial) 20 mg 1X ONCE 09/18/18 23:30 09/18/18 23:31 DC 09/18/18 23:53 20 MG Ondansetron HCl (Zofran) 4 mg 1X ONCE 09/18/18 23:30 09/18/18 23:31 DC 09/18/18 23:53 4 MG Potassium Chloride (Klor-Con) 40 meq 1X ONCE 09/19/18 00:45 09/19/18 00:46 DC Sodium Chloride 1,000 ml @ 1,000 mls/hr 1X ONCE 09/18/18 23:30 09/19/18 00:29 DC 09/18/18 23:54 1,000 MLS/HR (GILDA DINH DO) Allergies Allergies Allergies Coded Allergies Type Severity Reaction Last Updated Verified fish derived Allergy Severe ANAPHYLAXIS 06/25/18 Yes (GILDA DINH DO) Physical Exam Physical Exam Constitutional: Well developed, well nourished, no acute distress, non-toxic appearance. [] HENT: Normocephalic, atraumatic, bilateral external ears normal, oropharynx moist, no oral exudates, nose normal. [] Eyes: PERRLA, EOMI, conjunctiva normal, no discharge. [] Neck: Normal range of motion, no tenderness, supple, no stridor. [] Cardiovascular:Heart rate regular rhythm, no murmur [] Lungs & Thorax: Bilateral breath sounds clear to auscultation [] Abdomen: Bowel sounds normal, soft, epigastric tenderness, no masses, no pulsatile masses. [] Skin: Warm, dry, no erythema, no rash. [] Back: No tenderness, no CVA tenderness. [] Extremities: No tenderness, no cyanosis, no clubbing, ROM intact, no edema. [] Neurologic: Alert and oriented X 3, normal motor function, normal sensory function, no focal deficits noted. [] Psychologic: Affect normal, judgement normal, mood normal. [] (JENNY PARHAM APRN) Physical Exam Constitutional: Well developed, no acute distress, non-toxic appearance. [] HENT: Normocephalic, atraumatic, Lungs & Thorax: No respiratory distress Abdomen: Soft, epigastric tenderness Skin: Warm, dry, no erythema, no rash. [] Extremities: No tenderness, ROM intact, no edema. [] Neurologic: Alert and oriented X 3 (GILDA DINH DO) Current Patient Data Vital Signs Vital Signs Date Time Temp Pulse Resp B/P (MAP) Pulse Ox O2 Delivery O2 Flow Rate FiO2 09/18/18 23:10 98.9 112 195/111 (139) 96 Room Air 98.9 (GILDA DINH DO) Lab Values Laboratory Tests Test 09/18/18 23:00 09/18/18 23:25 09/18/18 23:45 Urine Collection Type Unknown Urine Color Yellow Urine Clarity Clear Urine pH 6.0 Urine Specific [place] 1.025 Urine Protein 30 mg/dL (NEG-TRACE) Urine Glucose (UA) Negative mg/dL (NEG) Urine Ketones (Stick) 40 mg/dL (NEG) Urine Blood Large (NEG) Urine Nitrite Negative (NEG) Urine Bilirubin Small (NEG) Urine Urobilinogen Dipstick 0.2 mg/dL (0.2 mg/dL) Urine Leukocyte Esterase Negative (NEG) Urine RBC Tntc /HPF (0-2) Urine WBC Occ /HPF (0-4) Urine Squamous Epithelial Cells Mod /LPF Urine Bacteria Few /HPF (0-FEW) Urine Mucus Mod /LPF Influenza Type A Antigen Positive (NEGATIVE) Influenza Type B Antigen Negative (NEGATIVE) White Blood Count 4.3 x10^3/uL (4.0-11.0) Red Blood Count 4.06 x10^6/uL (3.50-5.40) Hemoglobin 8.2 g/dL (12.0-15.5) L Hematocrit 26.6 % (36.0-47.0) L Mean Corpuscular Volume 66 fL (79-100) L Mean Corpuscular Hemoglobin 20 pg (25-35) L Mean Corpuscular Hemoglobin Concent 31 g/dL (31-37) Red Cell Distribution Width 18.9 % (11.5-14.5) H Platelet Count 221 x10^3/uL (140-400) Neutrophils (%) (Auto) 63 % (31-73) Lymphocytes (%) (Auto) 20 % (24-48) L Monocytes (%) (Auto) 15 % (0-9) H Eosinophils (%) (Auto) 0 % (0-3) Basophils (%) (Auto) 1 % (0-3) Neutrophils # (Auto) 2.7 x10^3uL (1.8-7.7) Lymphocytes # (Auto) 0.9 x10^3/uL (1.0-4.8) L Monocytes # (Auto) 0.6 x10^3/uL (0.0-1.1) Eosinophils # (Auto) 0.0 x10^3/uL (0.0-0.7) Basophils # (Auto) 0.0 x10^3/uL (0.0-0.2) Sodium Level 142 mmol/L (136-145) Potassium Level 2.8 mmol/L (3.5-5.1) *L Chloride Level 105 mmol/L (98-107) Carbon Dioxide Level 24 mmol/L (21-32) Anion Gap 13 (6-14) Blood Urea Nitrogen 6 mg/dL (7-20) L Creatinine 0.8 mg/dL (0.6-1.0) Estimated GFR (Cockcroft-Gault) 92.6 BUN/Creatinine Ratio 8 (6-20) Glucose Level 112 mg/dL (70-99) H Calcium Level 9.2 mg/dL (8.5-10.1) Total Bilirubin 0.7 mg/dL (0.2-1.0) Aspartate Amino Transferase (AST) 14 U/L (15-37) L Alanine Aminotransferase (ALT) 10 U/L (14-59) L Alkaline Phosphatase 72 U/L (46-116) Creatine Kinase 103 U/L (26-192) Creatine Kinase MB (Mass) < 0.5 ng/mL (0.0-3.6) Creatine Kinase MB Relative Index % (0-4) Troponin I Quantitative 0.020 ng/mL (0.000-0.055) Total Protein 7.0 g/dL (6.4-8.2) Albumin 3.3 g/dL (3.4-5.0) L Albumin/Globulin Ratio 0.9 (1.0-1.7) L Lipase 139 U/L (73-393) Laboratory Tests 09/18/18 23:45 Laboratory Tests 09/18/18 23:45 (GILDA DINH DO) EKG EKG Sinus tach and no STEMI Interpretation Time: [address] Dinh (JENNY PARHAM APRN) Radiology/Procedures Radiology/Procedures [] (JENNY PARHAM APRN) Course & Med Decision Making Course & Med Decision Making Patient is a 48 year old female who presents with 3 days of nausea, vomiting, diarrhea, chills, body aches and cough. Patient states the cough causes her to have chest pain. Patient states she is a diabetic and has not been checking her blood sugars but is taking her diabetes medications. Walks with a steady gait. Speaks in full clear sentences. Abdomen is soft with some generalized tenderness mainly at epigastric area. Afebrile. Patient denies any blood in her stool or urine. Patient denies any dysuria symptoms. Patient states her chest pain is only with coughing. Patient denies any shortness of breath, numbness or tingling, dizziness. She has 1-2+ peripheral edema. Lungs are clear to auscultation in all lobes. 2342: I have signed this patient out to Dr. Dinh [] (JENNY PARHAM APRN) Course & Med Decision Making Sign out received from patient with 3 day history of N/V/D and cough. Labs reviewed. Hypokalemia addressed. Influenza A positive. Symptomatic treatment provided. CXR without acute process. EKG stable. Patient seen and evaluated by myself. Patient stable for discharge with outpatient follow-up with PCP. Discussed findings and plan with patient and family, who acknowledge understanding and agreement. (GILDA DINH DO) Dragon Disclaimer Dragon Disclaimer This electronic medical record was generated, in whole or in part, using a voice recognition dictation system. (JENNY PARHAM APRN) Departure Departure Impression: Primary Impression: Nausea and vomiting Additional Impressions: Influenza A Hypokalemia Disposition: 01 HOME, SELF-CARE Condition: STABLE Referrals: OMAR LOGAN MD (PCP) Patient Instructions: Hypokalemia-Brief, Influenza, Adult, Hncv-wf-Avmp, Nausea and Vomiting, Vffo-yn-Aexy, Potassium Content of Foods Scripts Oseltamivir Phosphate (TAMIFLU) 75 Mg Capsule 1 CAP PO BID for influenza, #10 CAP Prov: GILDA DINH DO 09/19/18 Hyoscyamine Sulfate (LEVSIN-SL) 0.125 Mg Tab.subl 1-2 TAB SL PRN Q4HRS, #20 TAB 0 Refills Prov: GILDA DINH DO 09/19/18 Ondansetron (ONDANSETRON ODT) 4 Mg Tab.rapdis 1 TAB PO PRN Q6-8HRS PRN for NAUSEA, #16 TAB Prov: GILDA DINH DO 09/19/18 Famotidine (PEPCID) 20 Mg Tablet 20 MG PO BID, #14 TAB Prov: GILDA DINH DO 09/19/18 Attending Signature Attending Signature I have personally interviewed and examined the patient. All charts, labs, and imaging studies were reviewed. I agree with the PA/MAP EDITOR's findings, exam, and plan. (GILDA DINH DO) Problem Qualifiers Primary Impression: Nausea and vomiting Vomiting type: unspecified Vomiting Intractability: unspecified Qualified Codes: R11.2 - Nausea with vomiting, unspecified JENNY PARHAM APRN Sep 18, 2018 23:44 GILDA DINH DO Sep 19, 2018 00:51
[2018-09-18 23:57] LABS: INFLUENZA A PATIENT POSITIVE (NEGATIVE); INFLUENZA B PATIENT NEGATIVE (NEGATIVE)
[2018-09-19 00:07] LABS: BASO % 1 % (0-3); EOS % 0 % (0-3); HEMATOCRIT 26.6 % (36.0-47.0); HEMOGLOBIN 8.2 g/dL (12.0-15.5); LYMPH # 0.9 x10^3/uL (1.0-4.8); LYMPH % 20 % (24-48); MEAN CORPUSCULAR HEMOGLOBIN 20 pg (25-35); MEAN CORPUSCULAR HGB CONC 31 g/dL (31-37); MEAN CORPUSCULAR VOLUME 66 fL (79-100); MONO # 0.6 x10^3/uL (0.0-1.1); MONO % 15 % (0-9); NEUT # 2.7 x10^3uL (1.8-7.7); NEUT % 63 % (31-73); PLATELET COUNT 221 x10^3/uL (140-400); RED BLOOD COUNT 4.06 x10^6/uL (3.50-5.40); RED CELL DISTRIBUTION WIDTH 18.9 % (11.5-14.5); WHITE BLOOD COUNT 4.3 x10^3/uL (4.0-11.0)
[2018-09-19 00:20] LABS: ALBUMIN 3.3 g/dL (3.4-5.0); ALBUMIN/GLOBULIN RATIO 0.9 (1.0-1.7); CALCIUM 9.2 mg/dL (8.5-10.1); CREATININE 0.8 mg/dL (0.6-1.0); GFR 92.6; TOTAL BILIRUBIN 0.7 mg/dL (0.2-1.0)
[2018-09-19 00:22] LABS: POTASSIUM 2.8 mmol/L (3.5-5.1)
[2018-09-19 00:31] LABS: CREATINE KINASE 103 U/L (26-192)
[2018-09-19] MEDS ORDERED: POTASSIUM CHLORIDE 20 MEQ TABLET.ER. PO ONE (00:45)
[2018-09-19 00:46] VITALS: BP 224/110
[2018-09-19] MEDS ORDERED: HYOS0.1265 SL (00:50)
[2018-09-19] MEDS ORDERED: FAMO-63 PO (00:50)
[2018-09-19] MEDS ORDERED: ONDA4TAB12 PO (00:50)
[2018-09-19] MEDS ORDERED: OSEL75CA PO (00:50)
--- NOTE | 2018-09-19 01:49 | RAD ---
EXAM: CHEST 2 VIEWS. HISTORY: Cough, shortness of breath. COMPARISON: 04/03/2018. FINDINGS: Frontal and lateral views of the chest are obtained. There are no confluent infiltrates. There is a calcified granuloma in the left midlung. There is no pneumothorax or pleural effusion. The heart is not enlarged. Cholecystectomy clips are noted. IMPRESSION: 1. No confluent infiltrates. Electronically signed by: Elías Garcia MD (09/19/2018 1:44 AM) [facility]
[2018-09-19 03:25] LABS: ANISOCYTOSIS SLIGHT; HYPOCHROMIA MARKED; MICROCYTOSIS MARKED; PLT ESTIMATE ADEQUATE (ADEQUATE); POLYCHROMASIA SLIGHT
[2018-09-19 03:26] LABS: BIZZARE CELLS OCC; BURR CELLS FEW; HELMET CELLS OCC; OVALOCYTES OCC; SCHISTOCYTES OCC; TEAR DROP CELLS OCC
--- NOTE | 2018-09-19 05:19 | EKG ---
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
== END 2018-09-19 01:20 | disposition home or self-care (01) ==
LOC: ER 22:57
DX: J11.1 Influenza due to unidentified influenza virus with other respiratory manifestations (principal); R11.2 Nausea with vomiting, unspecified; R19.7 Diarrhea, unspecified; R07.89 Other chest pain; M79.18 Myalgia, other site; E87.6 Hypokalemia; J45.909 Unspecified asthma, uncomplicated; E11.9 Type 2 diabetes mellitus without complications; K21.9 Gastro-esophageal reflux disease without esophagitis; I10 Essential (primary) hypertension; Z90.49 Acquired absence of other specified parts of digestive tract; Z90.89 Acquired absence of other organs; Z98.890 Other specified postprocedural states; Z96.659 Presence of unspecified artificial knee joint; Z91.013 Allergy to seafood
CPT/HCPCS: 36415; 71046; 80053; 81001; 82553; 83690; 83735; 84484; 85025; 87804; 93005; 96361; 96374; 96375; 99284; J2405; J3490; J7030

== ENCOUNTER → 2018-09-30 | Outpatient (CLI) | payer OTHER ==
[2018-09-19 00:46] VITALS: BP 224/110
[~2018-09-30] MED LIST changes: +FAMO-63 PO; +HYOS0.1265 SL; +ONDA4TAB12 PO; +OSEL75CA PO; -RANI-376 PO; +RANI150T21 PO
--- NOTE | 2018-09-30 10:42 | RAD ---
MR of the left shoulder HISTORY: Worsening left shoulder pain after rotator cuff repair months ago. TECHNIQUE: Routine multiplanar sequences are obtained. FINDINGS: The acromioclavicular joint is mildly degenerative. There is diffuse thickening of the rotator cuff compatible with tendinosis. Humeral head anchor screw is identified deep to the anterior supraspinatus tendon footprint. There is a fluid defect at the anterior supraspinatus footprint undersurface compatible with a partial tear about 75% deep. Measures 1 cm AP diameter. No complete through and through rupture. Mild fluid in the subdeltoid bursa. Subscapularis tendon demonstrates tendinosis, but no measurable rupture. Mild rotator cuff muscle volume loss. Tear of the posterior and inferior labrum. Tear also involves the superior labrum and probably the anterior labrum. Small subchondral cyst at the posterior glenoid. Biceps tendon is poorly seen. No bone destruction or acute fracture. No acute soft tissue abnormality. IMPRESSION: 1. Circumferential or nearly circumferential labral tear. 2. Small but deep linear articular side tear of the anterior supraspinatus footprint. 3. Poorly seen biceps tendon, likely due to a tear unless there has been surgical intervention. Electronically signed by: Randolph Roldan MD (09/30/2018 10:39 AM) [facility]
== END | disposition home or self-care (01) ==
LOC: MRI 08:26
PROVIDERS: ATTEND Orthopaedic Surgery Sports Medicine
DX: M75.112 Incomplete rotator cuff tear or rupture of left shoulder, not specified as traumatic (principal); M19.012 Primary osteoarthritis, left shoulder
CPT/HCPCS: 73221

== ENCOUNTER → 2018-10-17 | Outpatient (CLI) | payer OTHER ==
[2018-09-19 00:46] VITALS: BP 224/110
[~2018-10-17] MED LIST changes: +RANI-376 PO; -RANI150T21 PO
--- NOTE | 2018-10-17 11:55 | RAD ---
DATE: 10/17/2018 EXAM: DIGITAL SCREEN BILAT W/CAD HISTORY: Routine screening COMPARISON: 07/13/2017 This study was interpreted with the benefit of Computerized Aided Detection (CAD). Breast Density: FATTY The breast parenchyma is primarily fatty replaced. Breast parenchyma level density A. FINDINGS: An old breast biopsy marker is again noted anterolaterally on the right. No new or enlarging breast densities are seen. Minimal benign type calcification is present. No suspicious microcalcifications have developed. Numerous benign-appearing lymph nodes are again noted in the axillary regions. IMPRESSION: Stable mammograms without evidence of malignancy. BI-RADS CATEGORY: 2 BENIGN FINDING(S) RECOMMENDED FOLLOW-UP: 12M 12 MONTH FOLLOW-UP PQRS compliance statement: Patient information was entered into a reminder system with a target due date for the next mammogram. Mammography is a sensitive method for finding small breast cancers, but it does not detect them all and is not a substitute for careful clinical examination. A negative mammogram does not negate a clinically suspicious finding and should not result in delay in biopsying a clinically suspicious abnormality. "Our facility is accredited by the [employer] Mammography Program."
== END | disposition home or self-care (01) ==
LOC: MAMMO 09:09
PROVIDERS: ATTEND Family Medicine
DX: Z12.31 Encounter for screening mammogram for malignant neoplasm of breast (principal)
CPT/HCPCS: 77067

== ENCOUNTER → 2018-11-04 | Outpatient (CLI) | payer MEDICAID, OTHER ==
--- NOTE | 2018-11-04 14:23 | RAD ---
EXAM: Nuclear gastric emptying scan. HISTORY: Pain. COMPARISON: None. TECHNIQUE: Serial static images were obtained over the stomach following oral administration of 1 mCi of 99m-Tc sulfur colloid in an egg based meal. FINDINGS: The stomach empties into the small bowel without evidence of reflux in the area of the esophagus. The estimated time for half emptying of gastric contents, i.e. 'gastric emptying time' is 103 minutes (normal is 66 +/- 22 minutes). There is 69% retained tracer activity at one hour, 43% retained tracer activity at 2 hours, 23% retained tracer activity at 3 hours on 12% retained tracer activity at 4 hours. IMPRESSION: Delayed gastric emptying with an estimated half-time of 103 minutes. Electronically signed by: Karol Cheema MD (11/04/2018 2:20 PM) [facility]
== END | disposition home or self-care (01) ==
LOC: NM 08:56
PROVIDERS: ATTEND Internal Medicine Gastroenterology
DX: K30 Functional dyspepsia (principal)
CPT/HCPCS: 78264; A9541

== ENCOUNTER → 2019-08-27 | Outpatient (CLI) | payer OTHER ==
[~2019-08-27] MED LIST changes: +LISI1TAB23 PO; -LISI1TAB3 PO
--- NOTE | 2019-08-27 12:51 | RAD ---
EXAM: Pelvic Ultrasound Complete INDICATION: IUD placement ? TECHNIQUE: Real-time ultrasound of the pelvis with permanent freeze-frame documentation. COMPARISON:?None. ? FINDINGS: ? UTERUS:?Uterus 12.0 x 7.0 x 7.0 cm.? Endometrial thickness 0.5 cm. An intrauterine device is present low in the endometrial cavity, projecting the cervix. Multiple leiomyomas are identified, including a 1.9 cm leiomyoma in the left uterine fundus is also noted. ? RIGHT OVARY/ADNEXA: Right ovary 5.3 x 3.7 x 3.9 cm.? Unremarkable. Normal ovarian blood flow. LEFT OVARY/ADNEXA:?Not well seen ? OTHER:?No evidence of significant pelvic free fluid. ? IMPRESSION: ? Myomatous uterus showing a low-lying intrauterine device. Electronically signed by: Jero Diaz MD (08/27/2019 12:48 PM) [facility]
--- NOTE | 2019-08-27 19:17 | RAD ---
History: Left breast tender nodule for 2 months for which the palpable area of concern has resolved but the tenderness remains. She also reports some nipple tenderness without discharge.. Technique: Left digital mammographic CC and MLO views were obtained with CAD - computer aided detection with the area of patient reported residual focal tenderness marked at the skin surface of the BB marker.. Comparison: October 17, 2018 screening mammogram. Findings: Breast Tissue Density A : The breast tissue is predominately fatty replaced. There are no suspicious masses, microcalcifications or areas of architectural distortion. There is no mammographic correlate to the patient's reported area of focal tenderness at the approximate 8:00 position 12 cm from the nipple. There is no mammographic interval change. Impression: Negative left diagnostic mammogram. Given her fatty replaced breast tissue and satisfactory visualization of the area of clinical concern as reported by the patient on mammography, additional imaging by ultrasound is deferred in favor of clinical management by the patient's referring provider. BI-RADS Category 1: Negative. Normal interval followup and clinical management of patient's left breast symptoms. . A mammogram does not have 100% sensitivity and therefore a negative imaging study should not delay further work up of a suspicious abnormality. The patient will receive a letter with the results in the mail. Patient information is entered into the reminder system with a target due date for the next screening mammogram. The patient will receive a reminder. "Our facility is accredited by the [employer] Mammography Program." BI-RADS 1 -- negative findings (within normal)
== END | disposition home or self-care (01) ==
LOC: MAMMO 09:59
PROVIDERS: ATTEND Nurse Practitioner Family
DX: N63.20 Unspecified lump in the left breast, unspecified quadrant (principal); D25.9 Leiomyoma of uterus, unspecified; Z97.5 Presence of (intrauterine) contraceptive device
CPT/HCPCS: 76830; 76856; 77065

== ENCOUNTER 2019-09-24 05:51 | Day surgery (SDC) | payer OTHER ==
[~2019-09-24] VITALS: Ht 160 cm; Wt 113.9 kg
[2019-09-24] MEDS ORDERED: ceFAZolin SODIUM 3 GM in IV DEXTROSE 5% 100ML 100 ML IV PRN (06:00)
[2019-09-24] MEDS ORDERED: DULA1.5P SQ (06:34)
[2019-09-24] MEDS ORDERED: MIDAZOLAM HCL/PF 2 MG/2 ML VIAL. ONE (06:37)
[2019-09-24] MEDS ORDERED: ROPIVacaine 0.5% PF 20 ML VIAL. ONE (06:38)
[2019-09-24] MEDS ORDERED: LIDOCAINE 1% PF 2 ML VIAL. ID PRN (07:00)
[2019-09-24] MEDS ORDERED: fentaNYL PF VIAL 100 MCG/2 ML VIAL IV PRN ×2 (07:00)
[2019-09-24] MEDS ORDERED: INSULIN LISPRO 100 UNIT/ML 3ML VIAL for OP,RR ONLY. SQ PRN (07:00)
[2019-09-24] MEDS ORDERED: IV RINGERS,LACTATED 1000ML 1,000 ML IV SCH (07:00)
[2019-09-24] MEDS ORDERED: MORPHINE SULFATE 2 MG/ML VIAL. IV PRN (07:00)
[2019-09-24] MEDS ORDERED: HYDROmorphone 2 MG/ML VIAL IV PRN (07:00)
[2019-09-24] MEDS ORDERED: PROCHLORPERAZINE 10 MG/2 ML VIAL. IV PRN (07:00)
[2019-09-24] MEDS ORDERED: ONDANSETRON PF 4 MG/2 ML VIAL. IV PRN (07:00)
[2019-09-24] MEDS ORDERED: EPINEPHrine VIAL 30 MG/30 ML VIAL ONE (07:05)
[2019-09-24] MEDS ORDERED: BUPIVACAINE MPF 0.5% 30 ML VIAL. ONE (07:05)
[2019-09-24] MEDS ORDERED: LIDOCAINE 1% Multi-Dose 20 ML VIAL. ONE (07:05)
[2019-09-24] MEDS ORDERED: fentaNYL PF VIAL 250 MCG/5 ML VIAL ONE (07:06)
[2019-09-24] MEDS ORDERED: ROCURONIUM 100 MG/10 ML VIAL. ONE (07:06)
[2019-09-24] MEDS ORDERED: DEXAMETHASONE SOD PHOS 4 MG/ML VIAL ONE (07:06)
[2019-09-24] MEDS ORDERED: ONDANSETRON PF 4 MG/2 ML VIAL. ONE (07:07)
[2019-09-24] MEDS ORDERED: PROPOFOL 20 ML IV ONE (07:07)
[2019-09-24] MEDS ORDERED: SEVOFLURANE > 120 MINUTES. IH ONE (07:07)
[2019-09-24] MEDS ORDERED: LIDOCAINE 2% PF 5 ML VIAL. ONE (07:07)
--- NOTE | 2019-09-24 07:31 | DISCH ---
DISCHARGE INSTRUCTIONS Condition on Discharge Condition on Discharge: Stable Activity After Discharge Activity Instructions for Disc: Activity as tolerated, Other, see below Other activity instructions: arm to remain in sling, nonweightbearing Driving Instructions after Dis: Do not drive today Weight Bearing Status after Di: As tolerated, Non weight bearing Diet after Discharge Diet after Discharge: Regular Diet Texture: Regular Liquid Texture: Thin Liquid Swallowing Supervision: None needed Wound Incision Care Wound/Incision Care: Ice to area for comfort, Keep wound/cast CDI, Change dressing Other wound/incision instructi: okay to change dressing after 2-3 days Checks after Discharge Checks after discharge: Check blood press - daily, Check your Temp as needed Contacting the DR. after DC Call your doctor for: Concerns you may have Follow-Up Follow up with: Dona in 2 weeks Treatment/Equipment after DC Adaptive Equipment Issued: None MELANIA HOFF II, MD Sep 24, 2019 07:31
[2019-09-24] MEDS ORDERED: PHENYLEPHRINE in 0.9% NACL PF 1 MG/10 ML SYRINGE. IV ONE (07:47)
[2019-09-24] MEDS ORDERED: NEOSTIGMINE METHYLSULFATE 5 MG/5 ML SYRINGE. ONE (08:37)
[2019-09-24] MEDS ORDERED: GLYCOPYRROLATE 1 MG/5 ML VIAL. ONE (08:37)
--- NOTE | 2019-09-24 08:37 | PDOC4 ---
Operative Note Operative Note Date of procedure: 09/24/19 Surgeon: Norberto Hoff Teaching Associate: Franck Ledesma, certified medicine aide Preoperative diagnosis: left shoulder rotator cuff tear, recurrent Postoperative diagnosis: left shoulder rotator cuff tear Procedure performed: arthroscopic left shoulder rotator cuff repair Anesthesia: Gen. plus regional nerve block Findings: #1 recurrent supraspinatus tear, near full-thickness #2 softening of leg cartilage #3 grade 2-3 changes at her glenoid #4 degenerative fraying at labrum #5 biceps was not visualized #6 remainder rotator cuff unremarkable Blood loss: 10mL Components inserted: [employer] Helacoil anchor x 1 Reason for procedure: Patient is a very pleasant woman who has had worsening left shoulder pain. Clinical and radiographic examination, including MRI were consistent with the preoperative diagnosis. She had tried physical therapy, anti-inflammatories, and had not had any improvement. Due to her symptoms and dysfunction, we had a discussion of the risks, benefits, alternatives the above surgery and he wished to proceed. Description of procedure: Patient was greeted in the preoperative holding area where the correct extremity was verified and marked. They were taken to the preoperative holding area where the anesthesiology team placed a regional nerve block. The patient was then taken back to the operative suite and antibiotics were started as they were brought back. Once in the operative room, the patient was transferred gently supine to the operating room table after successful induction of a general anesthetic. After this, she was sat up in a beachchair position maintaining her C-spine in neutral position, large pad under his legs, she was secured to the bed. We then prepped and draped her left upper extremity and shoulder girdle in our usual sterile fashion, we conducted our standard preoperative timeout. I palpated and marked surface anatomy for my planned portal sites. I then used a spinal needle to localize a posterior superior portal and incised skin in accordance with this. After this, I introduced the blunt arthroscopic trocar into the glenohumeral joint followed by the camera. I used a spinal needle to localize an anterosuperior portal and incised skin in accordance with this. I then introduced my arthroscopic probe and conducted my diagnostic arthroscopy with the above-noted findings. After this, I repositioned the camera into the subacromial space and performed a bursectomy and debrided the fibrotic layer that had formed in her subdeltoid space, with combination of shaver and electrocautery device. I then identified the rotator cuff tear and I debrided the pathologic tendon, remove the prior suture and prepared my footprint. I then placed my helacoil anchor and shuttled limbs through in a simple configuration. I tied these down with arthroscopic knot-tying techniques. The tear was stable to probing and to gentle rotation of the arm. I then removed all loose bony debris and the excess arthroscopic fluid. I took my final pictures prior to this. After this, all the excess fluid and instrumentation was removed. The portals were closed with simple interrupted 3-0 nylon. Sterile dressing was applied followed by an abduction pillow sling. Patient tolerated surgery well. No complications. At the conclusion, she was laid supine and transferred gently supine to the recovery room cart and taken to the PACU in a stable and extubated condition. Postoperative plan is discharge her home, nonweightbearing for 6 weeks. Well get her started on physical therapy. She will follow up with me in 2 weeks, sooner should a problem arise. NORBERTO HOFF II, MD Sep 24, 2019 08:37
[2019-09-24] MEDS ORDERED: oxyCODONE/APAP 5/325 1 TAB TABLET PO ONE (09:15)
[2019-09-24] MEDS ORDERED: ONDA4TAB7 PO (09:26)
[2019-09-24] MEDS ORDERED: DOCU-109 PO (09:27)
[2019-09-24] MEDS ORDERED: OXYC-325 PO (09:27)
[2019-09-24 09:30] VITALS: BP 150/74
== END 2019-09-24 10:15 | disposition home or self-care (01) ==
LOC: SURG 05:51
PROVIDERS: ATTEND Orthopaedic Surgery Sports Medicine
DX: M75.112 Incomplete rotator cuff tear or rupture of left shoulder, not specified as traumatic (principal); M24.112 Other articular cartilage disorders, left shoulder; G43.909 Migraine, unspecified, not intractable, without status migrainosus; E78.00 Pure hypercholesterolemia, unspecified; I10 Essential (primary) hypertension; J45.909 Unspecified asthma, uncomplicated; K21.9 Gastro-esophageal reflux disease without esophagitis; E11.9 Type 2 diabetes mellitus without complications; D64.9 Anemia, unspecified; E66.9 Obesity, unspecified; Z68.41 Body mass index [BMI] 40.0-44.9, adult; Z90.49 Acquired absence of other specified parts of digestive tract; Z79.899 Other long term (current) drug therapy; Z96.651 Presence of right artificial knee joint; Z79.84 Long term (current) use of oral hypoglycemic drugs; Z98.890 Other specified postprocedural states
CPT/HCPCS: 29827; 64415; 81025; 82962; J0171; J1100; J2001; J2250; J2370; J2405; J2704; J2710; J2795; J3010; J3490; A7015; C1713; C1782; J7120